=== PATIENT | male | born 1970 | race Caucasian/White ===

== ENCOUNTER 2017-06-28 12:13 | Inpatient (IN) | payer OTHER ==
[~2017-06-28] VITALS: Ht 175.3 cm; Wt 88.3 kg
[~2017-06-28 12:13] MED LIST: ALL100 PO; ASPEC81 PO; CLC100 PO; GEMF600T3 PO; LISI20TA3 PO; ODVTWSS PO; PRAV20TA PO; SENN-61 PO
[2017-06-28] MEDS ORDERED: SODIUM CHLORIDE 0.9% 1000ML 1,000 ML IV SCH (12:42)
--- NOTE | 2017-06-28 12:43 | EMERGENCY ROOM VISIT NOTE ---
History Report prepared by Agustina: Juan Luis Candelaria Under the Supervision of: Dr. Rah Ramirez M.D. First contact with patient: 12:30 Chief Complaint: NEURO SYMPTOMS Stated Complaint: LEG/L ARM WEAKNESS, SLURRED SPEECH SINCE LAST NIGH History of Present Illness The patient is a 46 year old male who presents to the Emergency Room with complaints of constant weakness beginning last night at 1800. The patient notes that he felt both of his legs grow weak last night at 1800. He notes a history of knee problems, which prompted him to ignore the weakness in his legs. The patient states that he felt restless while sleeping last night and developed left arm weakness/tingling today at 0100. The patient reports that he could not open a bottle cap with his left hand this morning. He also notes that his girlfriend felt that his speech was slurred this morning. The patient reports a history of hypertension, hyperlipidemia, and ETOH abuse. The patient states that he has not consumed alcohol for the past 3 years. He denies any fevers, history of stroke, recent trauma or surgeries, rectal bleeding, headache, history of diabetes, recent illness, neck pain, chest pain, shoulder pain, or abdominal pain. 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 Source of History: patient Onset: Yesterday at 1800 Position: arm (left), leg (bilateral) Quality: other (weakness) Timing: constant Associated Symptoms: No fevers, No headache, No neck pain, No chest pain, No abdominal pain, No hematochezia Note: Associated Symptoms: slurred speech. Denies: Recent illness, shoulder pain. Review of Systems As above. All other systems reviewed were negative unless otherwise stated in history. At least 10 were reviewed Past Medical & Surgical Medical Problems: (1) Degenerative joint disease (2) Lower extremity weakness Old medical records were reviewed. Nurse's notes were reviewed and I agree with. Old medical records were reviewed. Nurse's notes were reviewed and I agree with. Family History Patient reports no known family medical history. Social History Smoking Status: Never Smoker Alcohol Use: none Marital Status: in relationship Occupation Status: employed Current/Historical Medications Scheduled Aspirin (Aspirin), 325 MG PO DAILY Gemfibrozil (Lopid), 600 MG PO BID Lisinopril (Prinivil), 20 MG PO QAM Pravastatin (Pravachol ), 20 MG PO QPM Allergies Coded Allergies: No Known Allergies (Unverified , 04/19/10) Physical Exam Vital Signs Date Time Temp Pulse Resp B/P (MAP) Pulse Ox O2 Delivery O2 Flow Rate FiO2 06/28/17 14:31 127/89 06/28/17 14:29 71 24 95 06/28/17 14:01 135/94 06/28/17 13:59 71 23 94 06/28/17 13:46 137/86 06/28/17 13:45 73 14 96 06/28/17 13:16 75 15 149/94 96 Room Air 06/28/17 13:06 97 Room Air 06/28/17 13:04 92 06/28/17 12:38 87 23 155/105 95 Room Air 06/28/17 12:26 91 19 161/101 98 Room Air 06/28/17 12:19 37.0 91 18 171/104 96 Room Air Physical Exam General: Non-ill appearing middle aged male in no acute distress. Speech is slightly thickened but the patient is able to answer all questions normally. Alert and oriented x3. HEENT: Normal cephalic atraumatic. Pupils are equal round and reactive to light. Extraocular movements are intact. Oropharynx is pink with moist mucous membranes. No swelling of the mouth lips or tongue. Neck: Supple with a midline trachea. No meningeal signs or stiffness, no JVD or bruits. No Stridor. Chest: Clear to auscultation bilaterally. No wheezes or rhonchi. No increased work of breathing. Heart: regular rate and rhythm. Abdomen: Soft nontender, nondistended without rebound guarding or rigidity. Extremities: No cyanosis clubbing or edema. No calf tenderness or assymetry Spine/Back. Non tender to palpation. No CVA tenderness Skin: Good turgor without rashes. Neurologic exam: Cranial nerves two through 12 are intact. Left arm and leg have equal strength compared to the right but the patient states that they feel "different". He is intact to light touch. Finger nose intact. The patient is able to read and name objects without difficulty. Medical Decision & Procedures ER Provider Diagnostic Interpretation: Radiology results as stated below per my review and radiologist interpretation: CT SCAN OF THE BRAIN WITHOUT IV CONTRAST CLINICAL HISTORY: Strokelike symptoms. COMPARISON STUDY: No priors. TECHNIQUE: Unenhanced axial CT scan of the brain is performed from the vertex to the skull base. A dose lowering technique was utilized adhering to the principles of ALARA. FINDINGS: Brain parenchyma: The brain parenchyma is normal in appearance. There is no hemorrhage, mass effect, or evidence of acute territorial ischemia by CT criteria. Gunter-white matter is preserved. No extra-axial fluid collection is seen. Ventricles, sulci, cisterns: Normal in configuration. Intracranial vasculature: There is atherosclerotic calcification of the cavernous carotid and vertebral arteries. Calvarium: Unremarkable. Sinuses and mastoids: The visualized paranasal sinuses are clear. The mastoid air cells are well pneumatized. Orbits: The bony orbits are grossly intact. IMPRESSION: There is no hemorrhage, mass effect, or evidence of acute territorial ischemia by CT criteria. Electronically signed by: Nehemias Alegre M.D. 06/28/2017 1:01 PM Dictated Date/Time: 06/28/2017 12:[address] ANGIOGRAM OF THE BRAIN; CT ANGIOGRAM OF THE NECK CLINICAL HISTORY: Strokelike symptoms. COMPARISON STUDY: Unenhanced CT of the brain performed the same day 06/28/2017. TECHNIQUE: Following the IV administration of 119 of Optiray 320, CT angiogram of the head and neck was performed from the aortic arch to the vertex. Images are reviewed in the axial, sagittal, and coronal planes. 3-D MIPS images are created and assessed. IV contrast was administered without complication. All measurements were calculated based on NASCET criteria. A dose lowering technique was utilized adhering to the principles of ALARA. CT DOSE: 1198.79 mGy.cm FINDINGS: Brain parenchyma: The brain parenchyma is normal in appearance. There is no hemorrhage, mass effect, or evidence of acute territorial ischemia by CT criteria. There is no evidence of enhancing mass lesion on the angiogram phase images. The ventricles, sulci, and cisterns are normal in configuration. Gunter-white matter differentiation is preserved. No extra-axial fluid collection is seen. Thoracic aorta: Visualized portions of the thoracic aorta are normal in caliber. The aortic arch demonstrates standard 3-vessel anatomy. Right carotid arterial system: The right common carotid artery is widely patent, as are the right internal and external carotid arteries. Left carotid arterial system: The left common carotid artery is widely patent, as are the left internal and external carotid arteries. Vertebral arteries: Widely patent bilaterally and codominant. Subclavian arteries: Widely patent bilaterally. Intracranial vasculature: There is mild atherosclerotic calcification of the cavernous carotid arteries. The internal carotid arteries are patent at the skull base, as are the anterior and middle cerebral arteries bilaterally. The vertebrobasilar system and posterior cerebral arteries are widely patent. The vertebral arteries are codominant. There is no aneurysm, high-grade stenosis, or focal vessel cut off seen throughout the intracranial circulation. Jugular veins: Widely patent bilaterally. Dural sinuses: Patent. Lung apices: Partially visualized upper lobe lung parenchyma appears clear. Soft tissues: The visualized pharyngeal soft tissues are normal in appearance noting angiographic phase technique. The oropharyngeal airway appears widely patent. The salivary glands are normal in appearance. 11 mm low-attenuation nodule is noted in the left thyroid lobe. No cervical lymphadenopathy is seen. Skeletal structures: The calvarium appears intact. The cervical spine is within normal limits. Sinuses and mastoids: The paranasal sinuses are clear. The mastoid air cells are well pneumatized. IMPRESSION: 1. There is no hemorrhage, mass effect, or evidence of acute territorial ischemia by CT criteria. 2. Unremarkable CT angiogram of the brain. 3. Unremarkable CT angiogram of the neck. 4. There is an 11 mm low-attenuation nodule in the left thyroid lobe. Follow-up with a nonemergent thyroid ultrasound is recommended. Electronically signed by: Nehemias Alegre M.D. 06/28/2017 1:20 PM Dictated Date/Time: 06/28/2017 1:[address] ANGIOGRAM OF THE BRAIN; CT ANGIOGRAM OF THE NECK CLINICAL HISTORY: Strokelike symptoms. COMPARISON STUDY: Unenhanced CT of the brain performed the same day 06/28/2017. TECHNIQUE: Following the IV administration of 119 of Optiray 320, CT angiogram of the head and neck was performed from the aortic arch to the vertex. Images are reviewed in the axial, sagittal, and coronal planes. 3-D MIPS images are created and assessed. IV contrast was administered without complication. All measurements were calculated based on NASCET criteria. A dose lowering technique was utilized adhering to the principles of ALARA. CT DOSE: 1198.79 mGy.cm FINDINGS: Brain parenchyma: The brain parenchyma is normal in appearance. There is no hemorrhage, mass effect, or evidence of acute territorial ischemia by CT criteria. There is no evidence of enhancing mass lesion on the angiogram phase images. The ventricles, sulci, and cisterns are normal in configuration. Gunter-white matter differentiation is preserved. No extra-axial fluid collection is seen. Thoracic aorta: Visualized portions of the thoracic aorta are normal in caliber. The aortic arch demonstrates standard 3-vessel anatomy. Right carotid arterial system: The right common carotid artery is widely patent, as are the right internal and external carotid arteries. Left carotid arterial system: The left common carotid artery is widely patent, as are the left internal and external carotid arteries. Vertebral arteries: Widely patent bilaterally and codominant. Subclavian arteries: Widely patent bilaterally. Intracranial vasculature: There is mild atherosclerotic calcification of the cavernous carotid arteries. The internal carotid arteries are patent at the skull base, as are the anterior and middle cerebral arteries bilaterally. The vertebrobasilar system and posterior cerebral arteries are widely patent. The vertebral arteries are codominant. There is no aneurysm, high-grade stenosis, or focal vessel cut off seen throughout the intracranial circulation. Jugular veins: Widely patent bilaterally. Dural sinuses: Patent. Lung apices: Partially visualized upper lobe lung parenchyma appears clear. Soft tissues: The visualized pharyngeal soft tissues are normal in appearance noting angiographic phase technique. The oropharyngeal airway appears widely patent. The salivary glands are normal in appearance. 11 mm low-attenuation nodule is noted in the left thyroid lobe. No cervical lymphadenopathy is seen. Skeletal structures: The calvarium appears intact. The cervical spine is within normal limits. Sinuses and mastoids: The paranasal sinuses are clear. The mastoid air cells are well pneumatized. IMPRESSION: 1. There is no hemorrhage, mass effect, or evidence of acute territorial ischemia by CT criteria. 2. Unremarkable CT angiogram of the brain. 3. Unremarkable CT angiogram of the neck. 4. There is an 11 mm low-attenuation nodule in the left thyroid lobe. Follow-up with a nonemergent thyroid ultrasound is recommended. Electronically signed by: Nehemias Alegre M.D. 06/28/2017 1:20 PM Dictated Date/Time: 06/28/2017 1:14 PM Laboratory Results 06/28/17 12:35 Red Blood Count 5.33, Mean Corpuscular Volume 88.4, Mean Corpuscular Hemoglobin 31.0, Mean Corpuscular Hemoglobin Concent 35.0, Mean Platelet Volume 11.4, Neutrophils (%) (Auto) 65.1, Lymphocytes (%) (Auto) 23.8, Monocytes (%) (Auto) 9.0, Eosinophils (%) (Auto) 1.6, Basophils (%) (Auto) 0.2, Neutrophils # (Auto) 5.60, Lymphocytes # (Auto) 2.05, Monocytes # (Auto) 0.78, Eosinophils # (Auto) 0.14, Basophils # (Auto) 0.02 06/28/17 12:35 Test 06/28/17 12:35 06/28/17 12:45 06/28/17 13:18 White Blood Count 8.62 K/uL (4.8-10.8) Red Blood Count 5.33 M/uL (4.7-6.1) Hemoglobin 16.5 g/dL (14.0-18.0) Hematocrit 47.1 % (42-52) Mean Corpuscular Volume 88.4 fL (80-100) Mean Corpuscular Hemoglobin 31.0 pg (25-34) Mean Corpuscular Hemoglobin Concent 35.0 g/dl (32-36) Platelet Count 183 K/uL (130-400) Mean Platelet Volume 11.4 fL (7.4-10.4) Neutrophils (%) (Auto) 65.1 % Lymphocytes (%) (Auto) 23.8 % Monocytes (%) (Auto) 9.0 % Eosinophils (%) (Auto) 1.6 % Basophils (%) (Auto) 0.2 % Neutrophils # (Auto) 5.60 K/uL (1.4-6.5) Lymphocytes # (Auto) 2.05 K/uL (1.2-3.4) Monocytes # (Auto) 0.78 K/uL (0.11-0.59) Eosinophils # (Auto) 0.14 K/uL (0-0.5) Basophils # (Auto) 0.02 K/uL (0-0.2) RDW Standard Deviation 40.6 fL (36.4-46.3) RDW Coefficient of Variation 12.6 % (11.5-14.5) Immature Granulocyte % (Auto) 0.3 % Immature Granulocyte # (Auto) 0.03 K/uL (0.00-0.02) Prothrombin Time 10.0 SECONDS (9.0-12.0) Prothromb Time International Ratio 1.0 (0.9-1.1) Activated Partial Thromboplast Time 26.4 SECONDS (21.0-31.0) Partial Thromboplastin Ratio 1.0 Est Creatinine Clear Calc Drug Dose 95.2 ml/min Estimated GFR () 96.8 Estimated GFR (Non- 83.5 BUN/Creatinine Ratio 12.6 (10-20) Calcium Level 8.8 mg/dl (8.5-10.1) Magnesium Level 2.0 mg/dl (1.8-2.4) Total Creatine Kinase 260 U/L (39-308) Creatine Kinase MB 2.8 ng/ml (0.5-3.6) Creatine Kinase MB Ratio 1.1 (0-3.0) Troponin I < 0.015 ng/ml (0-0.045) Bedside Hemoglobin 16.7 g/dl (14.0-18.0) Bedside Hematocrit 49 % (42-52) Bedside Sodium 138 mEq/L (135-144) Bedside Potassium 3.8 mEq/L (3.3-5.0) Bedside Chloride 102 mEq/L (101-112) Bedside Total CO2 22 mEq/l (24-31) Anion Gap 19.0 mmol/L (16-25) Bedside Blood Urea Nitrogen 13 mg/dl (7-18) Bedside Creatinine 0.8 mg/dl (0.6-1.3) Bedside Glucose (other) 252 mg/dl (70-99) Bedside Ionized Calcium (Carisa) 1.19 mmol/l (1.12-1.32) Ethyl Alcohol mg/dL < 3.0 mg/dl (0-3) Laboratory studies as stated above per my review. Medications Administered Medications (Trade) Dose Ordered Sig/[facility] Route Start Time Stop Time Status Last Admin Dose Admin Sodium Chloride 1,000 ml @ 50 mls/hr Q20H IV 06/28/17 12:42 07/28/17 12:41 06/28/17 13:05 50 MLS/HR ECG Per My Interpretation Indication: weakness Rate (beats per minute): 90 Rhythm: normal sinus Findings: no acute ischemic change, other (normal intervals) Comparison ECG Date: April 20 2009 Change: no significant change ED Course 1230: Past medical records reviewed. The patient was evaluated in room C10, and a complete history and physical examination were performed. 1242: Ordered Sodium Chloride 1000 ml @ 50 mls/hr IV 1301: The patient has just returned from CAT scan. He is currently being evaluated from a stroke standpoint. 1327: I reevaluated the patient. He states that he already took his 325 aspirin today. 1331: I discussed the patient's case with Dr. Jonas- Stroke neurologist at [facility]. He states that given the patient's minimal symptoms at this time, he would not perform interventions at this point. 1339: I reevaluated the patient. He is currently stable. I will admit the patient for further monitoring and treatment. 1345: I discussed the patient's case with Dr. Caal - [facility]. He will evaluate the patient for further treatment and care. Medical Decision Differentials include, but are not limited to; CVA, TIA, electrolyte or metabolic abnormality, infection, trauma. This patient comes in as described above. He is placed in room CD10. He is having neurologic symptoms that started last evening. He said around 6 PM both legs felt weak. Then later in the evening he had a hard time sleeping he estimates sometime after midnight may be around 1:00 in the morning it felt like his left arm was not working very well and again this morning. He feels odd in his left arm and leg. His girlfriend also noticed that his speech is off compared to baseline. He has had no fall or trauma. On my exam, he has no weakness but may have some tingling/numbness. His speech is slightly dysarthric. Although his symptoms are relatively mild, I did call a stroke alert as he is likely about 12 hours into this. At this point, he would not meet TPA criteria but I wanted to speed his workup along, it is possible he could meet criteria for other interventions at a tertiary care center. CAT scan of the head was negative as well as CT of the head and neck. He has no acute electrolyte or metabolic abnormalities, blood sugars mildly elevated however he has nothing to suggest DKA. EKG does not suggest acute coronary syndrome or arrhythmia. I did talk to the [place] stroke neurologist who felt that given his very low NIH score and his timing he would definitely not meet TPA and there were no other interventions at [place] that he would suggest at this point. I do think he needs a further workup and may have had a small stroke related to some small vessels. I have consulted Dr. Caal to see the patient ER for these measures. Medication Reconcilliation Current Medication List: was personally reviewed by me Blood Pressure Screening Patient's blood pressure: Elevated blood pressure Blood pressure disposition: Referred to PCP Consults Time Called: 1325 Consulting Physician: Dr. Jonas- Stroke neurologist at [facility] Returned Call: 1331 I discussed the patient's case with Dr. Jonas- Stroke neurologist at [facility]. He states that given the patient's minimal symptoms at this time , he would not perform interventions at this point. Additional Consults: Time Called: 1340 Consulted Physician: Dr. Afua Valencia [facility] Returned Call: 1345 Additional Comments: I discussed the patient's case with Dr. Afua Valencia [facility]. He will evaluate the patient for further treatment and care. Impression Primary Impression: CVA (cerebral vascular accident) Additional Impressions: Dysarthria Left arm weakness Scribe Attestation The scribe's documentation has been prepared under my direction and personally reviewed by me in its entirety. I confirm that the note above accurately reflects all work, treatment, procedures, and medical decision making performed by me. Departure Information Dispostion Being Evaluated By Hospitalist Referrals Brock Nciolas M.D. (PCP) Patient Instructions My [facility] Problem Qualifiers
[2017-06-28 12:51] LABS: BASO % 0.2 %; BASO ABS # 0.02 K/uL (0-0.2); EOS % 1.6 %; EOS ABS # 0.14 K/uL (0-0.5); HEMATOCRIT 47.1 % (42-52); HEMOGLOBIN 16.5 g/dL (14.0-18.0); IG# 0.03 K/uL (0.00-0.02); LYMPH % 23.8 %; LYMPH ABS # 2.05 K/uL (1.2-3.4); MEAN CELL VOLUME 88.4 fL (80-100); MEAN PLATELET VOLUME 11.4 fL (7.4-10.4); MONO ABS # 0.78 K/uL (0.11-0.59); NEUT % 65.1 %; PLATELET COUNT 183 K/uL (130-400); RED CELL DISTRIBUTION WIDTH CV 12.6 % (11.5-14.5); RED CELL DISTRIBUTION WIDTH SD 40.6 fL (36.4-46.3); WHITE BLOOD COUNT 8.62 K/uL (4.8-10.8)
[2017-06-28 12:55] LABS: PTT PATIENT 26.4 SECONDS (21.0-31.0)
[2017-06-28 12:56] LABS: ISTAT CREATININE 0.8 mg/dl (0.6-1.3); ISTAT IONIZED CALCIUM 1.19 mmol/l (1.12-1.32); ISTAT POTASSIUM 3.8 mEq/L (3.3-5.0)
[2017-06-28] MEDS ORDERED: OPTIRAY 320 IV PRN (13:00)
--- NOTE | 2017-06-28 13:03 | DIAGNOSTIC IMAGING REPORT ---
CT SCAN OF THE BRAIN WITHOUT IV CONTRAST CLINICAL HISTORY: Strokelike symptoms. COMPARISON STUDY: No priors. TECHNIQUE: Unenhanced axial CT scan of the brain is performed from the vertex to the skull base. A dose lowering technique was utilized adhering to the principles of ALARA. FINDINGS: Brain parenchyma: The brain parenchyma is normal in appearance. There is no hemorrhage, mass effect, or evidence of acute territorial ischemia by CT criteria. Gunter-white matter is preserved. No extra-axial fluid collection is seen. Ventricles, sulci, cisterns: Normal in configuration. Intracranial vasculature: There is atherosclerotic calcification of the cavernous carotid and vertebral arteries. Calvarium: Unremarkable. Sinuses and mastoids: The visualized paranasal sinuses are clear. The mastoid air cells are well pneumatized. Orbits: The bony orbits are grossly intact. IMPRESSION: There is no hemorrhage, mass effect, or evidence of acute territorial ischemia by CT criteria. Electronically signed by: Nehemias Alegre M.D. 06/28/2017 1:01 PM Dictated Date/Time: 06/28/2017 12:59 PM
[2017-06-28 13:06] LABS: BLOOD UREA NITROGEN 13 mg/dl (7-18); CALCIUM 8.8 mg/dl (8.5-10.1); CARBON DIOXIDE 24 mmol/L (21-32); CREATININE 1.05 mg/dl (0.60-1.40); GLUCOSE 247 mg/dl (70-99); POTASSIUM 3.7 mmol/L (3.5-5.1); SODIUM 135 mmol/L (136-145)
[2017-06-28] MEDS ORDERED: ASPECOTC PO (13:07)
[2017-06-28 13:10] LABS: CKMB 2.8 ng/ml (0.5-3.6)
--- NOTE | 2017-06-28 13:21 | DIAGNOSTIC IMAGING REPORT ---
CT ANGIOGRAM OF THE BRAIN; CT ANGIOGRAM OF THE NECK CLINICAL HISTORY: Strokelike symptoms. COMPARISON STUDY: Unenhanced CT of the brain performed the same day 06/28/2017. TECHNIQUE: Following the IV administration of 119 of Optiray 320, CT angiogram of the head and neck was performed from the aortic arch to the vertex. Images are reviewed in the axial, sagittal, and coronal planes. 3-D MIPS images are created and assessed. IV contrast was administered without complication. All measurements were calculated based on NASCET criteria. A dose lowering technique was utilized adhering to the principles of ALARA. CT DOSE: 1198.79 mGy.cm FINDINGS: Brain parenchyma: The brain parenchyma is normal in appearance. There is no hemorrhage, mass effect, or evidence of acute territorial ischemia by CT criteria. There is no evidence of enhancing mass lesion on the angiogram phase images. The ventricles, sulci, and cisterns are normal in configuration. Gunter-white matter differentiation is preserved. No extra-axial fluid collection is seen. Thoracic aorta: Visualized portions of the thoracic aorta are normal in caliber. The aortic arch demonstrates standard 3-vessel anatomy. Right carotid arterial system: The right common carotid artery is widely patent, as are the right internal and external carotid arteries. Left carotid arterial system: The left common carotid artery is widely patent, as are the left internal and external carotid arteries. Vertebral arteries: Widely patent bilaterally and codominant. Subclavian arteries: Widely patent bilaterally. Intracranial vasculature: There is mild atherosclerotic calcification of the cavernous carotid arteries. The internal carotid arteries are patent at the skull base, as are the anterior and middle cerebral arteries bilaterally. The vertebrobasilar system and posterior cerebral arteries are widely patent. The vertebral arteries are codominant. There is no aneurysm, high-grade stenosis, or focal vessel cut off seen throughout the intracranial circulation. Jugular veins: Widely patent bilaterally. Dural sinuses: Patent. Lung apices: Partially visualized upper lobe lung parenchyma appears clear. Soft tissues: The visualized pharyngeal soft tissues are normal in appearance noting angiographic phase technique. The oropharyngeal airway appears widely patent. The salivary glands are normal in appearance. 11 mm low-attenuation nodule is noted in the left thyroid lobe. No cervical lymphadenopathy is seen. Skeletal structures: The calvarium appears intact. The cervical spine is within normal limits. Sinuses and mastoids: The paranasal sinuses are clear. The mastoid air cells are well pneumatized. IMPRESSION: 1. There is no hemorrhage, mass effect, or evidence of acute territorial ischemia by CT criteria. 2. Unremarkable CT angiogram of the brain. 3. Unremarkable CT angiogram of the neck. 4. There is an 11 mm low-attenuation nodule in the left thyroid lobe. Follow-up with a nonemergent thyroid ultrasound is recommended. Electronically signed by: Nehemias Alegre M.D. 06/28/2017 1:20 PM Dictated Date/Time: 06/28/2017 1:14 PM
[2017-06-28] MEDS ORDERED: ACETAMINOPHEN 325 MG TAB PO PRN (14:30)
[2017-06-28] MEDS ORDERED: GLUCOSE 10 TABS/TUBE PO PRN (14:30)
[2017-06-28] MEDS ORDERED: PHARMACIST DISCHARGE MED REC CONSULT PRN (14:30)
[2017-06-28] MEDS ORDERED: GLUCOSE 40% GEL 15 GM TUBE PO PRN (14:30)
[2017-06-28] MEDS ORDERED: DEXTROSE 50% 50 ML SYR IV PRN (14:30)
[2017-06-28] MEDS ORDERED: ONDANSETRON INJ 2 MG/ML 2 ML VIAL IV PRN (14:30)
[2017-06-28] MEDS ORDERED: GLUCAGON FOR INJ 1 MG VIAL SQ PRN (14:30)
[2017-06-28] MEDS ORDERED: MAGNESIUM HYDROXIDE SUSP 30 ML UDC PO PRN (14:30)
[2017-06-28] MEDS ORDERED: ALUMINUM/MAGNESIUM/SIMETH (MAALOX MAX) 30 ML UDC PO PRN (14:30)
[2017-06-28] MEDS ORDERED: POLYETHYLENE (MIRALAX) 17 GM PACK PO PRN (14:30)
[2017-06-28 15:04] VITALS: O2SAT 95; Ht 175.3 cm; Wt 88.3 kg
--- NOTE | 2017-06-28 15:05 | History and Physical ---
History & Physical Date & Time of Service: Jun 28, 2017 at 14:41 Chief Complaint: Leg/L Arm Weakness, Slurred Speech Since Last Night Primary Care Physician: Brock Nicolas M.D. History of Present Illness Source: patient, clinic records, hospital records This is a 46 y/o male with a history of HTN, HLD, DM II, gout, and fatty liver who presented to the ED on 06/28 with bilateral lower extremity weakness and left arm weakness and tingling. The patient had been in his normal state of health until around 1800 last night when he developed bilateral lower extremity weakness. He states that he was still able to walk and get around, but felt that his legs might give out. He had also reported quick, intermittent episodes of nausea that night but denied any dysphagia. He was restless all night. This morning he developed left arm weakness and tingling as well. He states that he has been having pain and possible weakness due to injury to his left elbow but that now his entire left arm is affected and this feels different than his previous injury. He denies any recent trauma or falls. Per his girlfriend, he may have had some slurred speech this morning and he notes he was drooling from the left side. He denies any slurred speech now or aphasia. The patient denies fevers, chills, sweats, chest pain, palpitations, claudication, cough, wheezing, shortness of breath, vomiting, abdominal pain, dysuria, hematuria, urinary retention, paralysis. Past Medical/Surgical History Medical Problems: (1) Benign essential hypertension (2) Degenerative joint disease (3) Hyperlipidemia (4) Lower extremity weakness DM II Gout Fatty liver Family History Diabetes mellitus GRANDMOTHER Emphysema MOTHER Myocardial infarction at age less than 60 FATHER, Onset:40 Uncle, Onset:38 Social History Smoking Status: Never Smoker Smokeless Tobacco Use: Yes (1 can q3days) Alcohol Use: none (former heavy use, no ETOH since 11/22/14) Drug Use: none Marital Status: in relationship Housing status: lives with family Occupational Status: employed Immunizations History of Influenza Vaccine: Yes History of Tetanus Vaccine?: Yes History of Pneumococcal: Unknown History of Hepatitis B Vaccine: No Allergies Coded Allergies: No Known Allergies (Unverified , 04/19/10) Home Medications Scheduled Aspirin (Aspirin), 325 MG PO DAILY Gemfibrozil (Lopid), 600 MG PO BID Lisinopril (Prinivil), 20 MG PO QAM Pravastatin (Pravachol ), 20 MG PO QPM Review of Systems Constitutional: No fever, No chills, No sweats Eyes: No worsening of vision, No eye pain, No diplopia ENT: No hearing loss, No nasal symptoms, No trouble swallowing Respiratory: No cough, No wheezing, No shortness of breath Cardiovascular: No chest pain, No claudication, No palpitations Abdomen: +Brief periods nausea. No pain, No vomiting Musculoskeletal: No joint pain, No muscle pain, No swelling Genitourinary - Male: No dysuria, No urinary retention, No hematuria Neurologic: +Bilateral lower extremity weakness. Left arm weak and tingling. Possible slurred speech. No paralysis Integumentary: No rash, No itch, No color change Physical Exam Vital Signs Date Time Temp Pulse Resp B/P (MAP) Pulse Ox O2 Delivery O2 Flow Rate FiO2 06/28/17 13:46 137/86 06/28/17 13:45 73 14 96 06/28/17 13:16 75 15 149/94 96 Room Air 06/28/17 13:06 97 Room Air 06/28/17 13:04 92 06/28/17 12:38 87 23 155/105 95 Room Air 06/28/17 12:26 91 19 161/101 98 Room Air 06/28/17 12:19 37.0 91 18 171/104 96 Room Air General appearance: Well-developed, well-nourished, no apparent distress Head: Normocephalic, atraumatic Eyes: Normal inspection, PERRL, EOMI ENT: Normal ENT inspection, hearing grossly normal, pharynx normal Neck: Supple, no JVD, trachea midline Respiratory/Chest: Lungs clear to auscultation, normal breath sounds, no respiratory distress Cardiovascular: Regular rate & rhythm, no gallop, no murmur Abdomen/GI: Normal bowel sounds, non-tender, soft Extremities/Musculoskeletal: Normal inspection, no calf tenderness, no pedal edema Neurological/Psych: +No notable dysarthria or facial droop during my exam. Left arm became shaky while testing pronator drift but did not drift down. Extremity muscle strength equal bilaterally, sensation intact and equal bilaterally on my exam. Cerebellar exams normal. Alert, normal mood/affect, oriented x 3 Skin: Normal color, warm/dry, no rash Diagnostics Laboratory Results Results Past 24 Hours Test 06/28/17 12:35 06/28/17 12:45 06/28/17 13:18 Range/Units White Blood Count 8.62 4.8-10.8 K/uL Red Blood Count 5.33 4.7-6.1 M/uL Hemoglobin 16.5 14.0-18.0 g/dL Hematocrit 47.1 42-52 % Mean Corpuscular Volume 88.4 80-100 fL Mean Corpuscular Hemoglobin 31.0 25-34 pg Mean Corpuscular Hemoglobin Concent 35.0 32-36 g/dl Platelet Count 183 130-400 K/uL Mean Platelet Volume 11.4 7.4-10.4 fL Neutrophils (%) (Auto) 65.1 % Lymphocytes (%) (Auto) 23.8 % Monocytes (%) (Auto) 9.0 % Eosinophils (%) (Auto) 1.6 % Basophils (%) (Auto) 0.2 % Neutrophils # (Auto) 5.60 1.4-6.5 K/uL Lymphocytes # (Auto) 2.05 1.2-3.4 K/uL Monocytes # (Auto) 0.78 0.11-0.59 K/uL Eosinophils # (Auto) 0.14 0-0.5 K/uL Basophils # (Auto) 0.02 0-0.2 K/uL RDW Standard Deviation 40.6 36.4-46.3 fL RDW Coefficient of Variation 12.6 11.5-14.5 % Immature Granulocyte % (Auto) 0.3 % Immature Granulocyte # (Auto) 0.03 0.00-0.02 K/uL Prothrombin Time 10.0 9.0-12.0 SECONDS Prothromb Time International Ratio 1.0 0.9-1.1 Activated Partial Thromboplast Time 26.4 21.0-31.0 SECONDS Partial Thromboplastin Ratio 1.0 Sodium Level 135 136-145 mmol/L Potassium Level 3.7 3.5-5.1 mmol/L Chloride Level 105 98-107 mmol/L Carbon Dioxide Level 24 21-32 mmol/L Anion Gap 6.0 19.0 16-25 mmol/L Blood Urea Nitrogen 13 7-18 mg/dl Creatinine 1.05 0.60-1.40 mg/dl Est Creatinine Clear Calc Drug Dose 95.2 ml/min Estimated GFR () 96.8 Estimated GFR (Non- 83.5 BUN/Creatinine Ratio 12.6 10-20 Random Glucose 247 70-99 mg/dl Calcium Level 8.8 8.5-10.1 mg/dl Magnesium Level 2.0 1.8-2.4 mg/dl Total Creatine Kinase 260 39-308 U/L Creatine Kinase MB 2.8 0.5-3.6 ng/ml Creatine Kinase MB Ratio 1.1 0-3.0 Troponin I < 0.015 0-0.045 ng/ml Bedside Hemoglobin 16.7 14.0-18.0 g/dl Bedside Hematocrit 49 42-52 % Bedside Sodium 138 135-144 mEq/L Bedside Potassium 3.8 3.3-5.0 mEq/L Bedside Chloride 102 101-112 mEq/L Bedside Total CO2 22 24-31 mEq/l Bedside Blood Urea Nitrogen 13 7-18 mg/dl Bedside Creatinine 0.8 0.6-1.3 mg/dl Bedside Glucose (other) 252 70-99 mg/dl Bedside Ionized Calcium (Carisa) 1.19 1.12-1.32 mmol/l Ethyl Alcohol mg/dL < 3.0 0-3 mg/dl Diagnostic Radiology Reviewed the following studies and agree with interpretation as follows: CT SCAN OF THE BRAIN WITHOUT IV CONTRAST CLINICAL HISTORY: Strokelike symptoms. COMPARISON STUDY: No priors. TECHNIQUE: Unenhanced axial CT scan of the brain is performed from the vertex to the skull base. A dose lowering technique was utilized adhering to the principles of ALARA. FINDINGS: Brain parenchyma: The brain parenchyma is normal in appearance. There is no hemorrhage, mass effect, or evidence of acute territorial ischemia by CT criteria. Gunter-white matter is preserved. No extra-axial fluid collection is seen. Ventricles, sulci, cisterns: Normal in configuration. Intracranial vasculature: There is atherosclerotic calcification of the cavernous carotid and vertebral arteries. Calvarium: Unremarkable. Sinuses and mastoids: The visualized paranasal sinuses are clear. The mastoid air cells are well pneumatized. Orbits: The bony orbits are grossly intact. IMPRESSION: There is no hemorrhage, mass effect, or evidence of acute territorial ischemia by CT criteria. CT ANGIOGRAM OF THE BRAIN; CT ANGIOGRAM OF THE NECK CLINICAL HISTORY: Strokelike symptoms. COMPARISON STUDY: Unenhanced CT of the brain performed the same day 06/28/2017. TECHNIQUE: Following the IV administration of 119 of Optiray 320, CT angiogram of the head and neck was performed from the aortic arch to the vertex. Images are reviewed in the axial, sagittal, and coronal planes. 3-D MIPS images are created and assessed. IV contrast was administered without complication. All measurements were calculated based on NASCET criteria. A dose lowering technique was utilized adhering to the principles of ALARA. CT DOSE: 1198.79 mGy.cm FINDINGS: Brain parenchyma: The brain parenchyma is normal in appearance. There is no hemorrhage, mass effect, or evidence of acute territorial ischemia by CT criteria. There is no evidence of enhancing mass lesion on the angiogram phase images. The ventricles, sulci, and cisterns are normal in configuration. Gunter-white matter differentiation is preserved. No extra-axial fluid collection is seen. Thoracic aorta: Visualized portions of the thoracic aorta are normal in caliber. The aortic arch demonstrates standard 3-vessel anatomy. Right carotid arterial system: The right common carotid artery is widely patent, as are the right internal and external carotid arteries. Left carotid arterial system: The left common carotid artery is widely patent, as are the left internal and external carotid arteries. Vertebral arteries: Widely patent bilaterally and codominant. Subclavian arteries: Widely patent bilaterally. Intracranial vasculature: There is mild atherosclerotic calcification of the cavernous carotid arteries. The internal carotid arteries are patent at the skull base, as are the anterior and middle cerebral arteries bilaterally. The vertebrobasilar system and posterior cerebral arteries are widely patent. The vertebral arteries are codominant. There is no aneurysm, high-grade stenosis, or focal vessel cut off seen throughout the intracranial circulation. Jugular veins: Widely patent bilaterally. Dural sinuses: Patent. Lung apices: Partially visualized upper lobe lung parenchyma appears clear. Soft tissues: The visualized pharyngeal soft tissues are normal in appearance noting angiographic phase technique. The oropharyngeal airway appears widely patent. The salivary glands are normal in appearance. 11 mm low-attenuation nodule is noted in the left thyroid lobe. No cervical lymphadenopathy is seen. Skeletal structures: The calvarium appears intact. The cervical spine is within normal limits. Sinuses and mastoids: The paranasal sinuses are clear. The mastoid air cells are well pneumatized. IMPRESSION: 1. There is no hemorrhage, mass effect, or evidence of acute territorial ischemia by CT criteria. 2. Unremarkable CT angiogram of the brain. 3. Unremarkable CT angiogram of the neck. 4. There is an 11 mm low-attenuation nodule in the left thyroid lobe. Follow-up with a nonemergent thyroid ultrasound is recommended. EKG Reviewed EKG and agree with interpretation as follows: 90 bpm, NSR Impression Assessment and Plan 46 y/o male with a history of HTN, HLD, DM II, gout, and fatty liver who presented to the ED on 06/28 with bilateral lower extremity weakness and left arm weakness and tingling. Pt afebrile, VSS on arrival. Head CT negative. Head and neck CTA unremarkable for acute disease, did show nodule in left thyroid lobe. EKG no ischemic changes. Symptoms first bgan around 1800 last night and have not improved or worsened per pt. Possible CVA/TIA -Admit to telemetry for observation -Stroke protocol, neuro checks q4h -Consult neurology, appreciate recs -MRI brain, echocardiogram ordered -Head CT, head and neck CTA unremarkable -Trend cardiac enzymes q8h x 3, first set negative -Lipid fasting panel and HgbA1c -Continue ASA, pravastatin, gemfibrozil. Hold lisinopril for now for permissive HTN -EKG q am and prn chest pain -PT/OT HTN--stable, BP 127/89 -Hold lisinopril for now for permissive HTN HLD -Continue pravastatin 20 mg PO qd and gemfibrozil 600 mg PO BID DM II--last HgbA1c 8.2 in 2015. Pt states that when he stopped drinking ETOH, he began drinking copious amounts soda instead (up to four 2L bottles/day) , leading to hyperglycemia. He now drinks sugar free and has cut down amount. He does not take DM meds at home -Insulin sliding scale -Check BSGs q ac and qhs -Recheck HgbA1c as above Gout--stable, no acute flares -Pt had recently filled prednisone dose pack just in case of flare but has not needed to use yet Fatty liver, h/o heavy ETOH use -ETOH level negative in ED -No drinks since 11/22/14 Thyroid nodule -11 mm nodule on left thyroid lobe noted, nonemergent follow up ultrasound recommended DVT prophylaxis -Enoxaparin 40 mg SC q24h -SALVADOR Kohli Code Status -Level I, FULL RESUSCITATION STATUS Resuscitation Status VTE Prophylaxis Will order VTE Prophylaxis: Yes
--- NOTE | 2017-06-28 15:44 | DIAGNOSTIC IMAGING REPORT ---
BONY ORBITS 3 VIEWS CLINICAL HISTORY: MRI clearance. FINDINGS: 3 views of the bony orbits are obtained. Correlation is made with CT of the brain dated 06/28/2017. There is no radiodense/metallic foreign body seen in the region of the bony orbits. The bony orbits are intact as imaged. The visualized paranasal sinuses and the mastoid air cells appear clear. The imaged calvarium appears intact. IMPRESSION: There is no radiodense/metallic foreign body seen in the region of the bony orbits. Electronically signed by: Nehemias Alegre M.D. 06/28/2017 3:42 PM Dictated Date/Time: 06/28/2017 3:42 PM
[2017-06-28] MEDS ORDERED: INSULIN ASPART 100 UNITS/ML 3 ML PEN SC SCH ×2 (16:00→21:00)
--- NOTE | 2017-06-28 16:16 | DIAGNOSTIC IMAGING REPORT ---
MRI OF THE BRAIN WITHOUT IV CONTRAST CLINICAL HISTORY: Left upper and lower extremity weakness. Slurred speech. COMPARISON STUDY: CT and CT angiogram of the brain dated 06/28/2017. TECHNIQUE: MRI of the brain was performed utilizing various T1 and T2-weighted sequences in the axial, sagittal, and coronal planes. IV contrast was not administered for this examination. FINDINGS: Brain parenchyma: There is a questionable punctate focus of restricted diffusion versus artifact identified within the right aspect of the shabbir seen on image #8. A corresponding focus of FLAIR signal abnormality is seen on image #15. No additional foci of restricted effusion are suggested. There are scattered tiny foci of subcortical and periventricular microangiopathic disease. There is no hemorrhage or mass effect. Gunter-white matter differentiation is preserved. No extra-axial fluid collection is seen. The cerebellar tonsils are normal in configuration. Ventricles, sulci, and cisterns: Normal in configuration. Pituitary and sella: Unremarkable. Intracranial vasculature: Normal flow voids are maintained at the skull base. Orbits: The bony orbits are grossly intact. Orbital contents are normal in appearance. Sinuses and mastoids: Clear. Calvarium: Unremarkable. Cervical cord: Partially visualized cervical spinal cord is normal in morphology and signal intensity. IMPRESSION: 1. Question a punctate focus of restricted diffusion versus artifact within the right aspect of the shabbir. A tiny acute to subacute lacunar infarct is not excluded. 2. No additional foci of restricted diffusion are identified. There is no hemorrhage or mass effect. Electronically signed by: Nehemias Alegre M.D. 06/28/2017 4:15 PM Dictated Date/Time: 06/28/2017 4:09 PM
[2017-06-28] MEDS ORDERED: IV FLUIDS COMPLETED PRN (16:45)
[2017-06-28 17:45] VITALS: BP 118/89; PULSE 72; TEMP 37; O2SAT 96
[2017-06-28] MEDS ORDERED: NURSING VERBAL MED ORDER ONE (18:15)
[2017-06-28] MEDS: SODIUM CHLORIDE 0.9% 1000ML 1,000 ML IV SCH (18:22)
[2017-06-28] MEDS: ENOXAPARIN 40 MG/0.4 ML SYR SC SCH (18:54)
[2017-06-28] MEDS: GEMFIBROZIL 600 MG TAB PO SCH (19:13)
[2017-06-28 19:18] VITALS: BP 127/85; PULSE 62; TEMP 36.6; O2SAT 96
[2017-06-28 20:43] LABS: CKMB 1.9 ng/ml (0.5-3.6)
[2017-06-28] MEDS ORDERED: PRAVASTATIN SOD 20 MG TAB PO SCH (21:00)
[2017-06-28 22:53] VITALS: BP 114/75; PULSE 75; TEMP 36.9; O2SAT 94
[2017-06-28] MEDS: INSULIN ASPART 100 UNITS/ML 3 ML PEN SC SCH (23:49)
[2017-06-29 03:14] VITALS: BP 119/72; PULSE 72; TEMP 36.7; O2SAT 95
[2017-06-29 04:27] LABS: BASO % 0.5 %; BASO ABS # 0.04 K/uL (0-0.2); EOS % 2.3 %; EOS ABS # 0.18 K/uL (0-0.5); HEMOGLOBIN 15.7 g/dL (14.0-18.0); IG# 0.03 K/uL (0.00-0.02); LYMPH % 34.7 %; LYMPH ABS # 2.77 K/uL (1.2-3.4); MEAN CELL VOLUME 89.8 fL (80-100); MEAN CORPUSCULAR HEMOGLOBIN 31.3 pg (25-34); MEAN CORPUSCULAR HGB CONC 34.9 g/dl (32-36); MEAN PLATELET VOLUME 11.6 fL (7.4-10.4); NEUT % 52.1 %; NEUT ABS # 4.17 K/uL (1.4-6.5); PLATELET COUNT 163 K/uL (130-400); RED CELL DISTRIBUTION WIDTH CV 12.7 % (11.5-14.5); RED CELL DISTRIBUTION WIDTH SD 41.7 fL (36.4-46.3); WHITE BLOOD COUNT 7.99 K/uL (4.8-10.8)
[2017-06-29 04:46] LABS: BLOOD UREA NITROGEN 12 mg/dl (7-18); CALCIUM 8.5 mg/dl (8.5-10.1); CARBON DIOXIDE 26 mmol/L (21-32); CHOLESTEROL 176 mg/dl (0-200); CREATININE 0.91 mg/dl (0.60-1.40); GLUCOSE 114 mg/dl (70-99); POTASSIUM 3.8 mmol/L (3.5-5.1); SODIUM 138 mmol/L (136-145)
[2017-06-29 04:51] LABS: CKMB 1.7 ng/ml (0.5-3.6); LDL CHOLESTEROL CALCULATED 104 mg/dl
[2017-06-29] MEDS: INSULIN ASPART 100 UNITS/ML 3 ML PEN SC SCH ×4 (06:00→20:34)
[2017-06-29 07:38] VITALS: BP 116/69; PULSE 65; TEMP 36.8; O2SAT 97
[2017-06-29] MEDS ORDERED: LISINOPRIL 20 MG TAB PO SCH (09:00)
[2017-06-29] MEDS: ASPIRIN 325 MG ECTAB PO SCH (10:17)
[2017-06-29] MEDS: ATORVASTATIN 40 MG TAB PO SCH (10:17)
[2017-06-29] MEDS: GEMFIBROZIL 600 MG TAB PO SCH ×2 (10:17→19:37)
[2017-06-29 11:47] VITALS: BP 138/82; PULSE 80; TEMP 37; O2SAT 97
--- NOTE | 2017-06-29 12:07 | Neurology Consultation ---
Neurology Consultation Date of Consultation: Jun 29, 2017. Attending Physician: Khai Max M.D. Primary Care Physician: Brock Nicolas M.D. Reason for Consultation: Stroke History of Present Illness Source: patient, hospital records The patient is a 46-year-old male with a chief complaint of left-sided weakness. He reports that both of his legs felt weak prior to going to bed 2 nights ago. He woke early in the morning with perception of weakness of the left arm and leg. He reports that his leg feels heavy. He also complains of some associated tingling and slurred speech. The symptoms have persisted.Past medical history notable for hypertension although his blood glucose has been significantly elevated in the probably has type 2 diabetes mellitus as well which is a new problem. A CT of the head was negative for hemorrhage or acute process. I reviewed the images and report. CT angiography of the head and neck are unremarkable. An electrocardiogram reveals normal sinus rhythm, 90 beats per minute. His symptoms were felt to be mild in the emergency department and tPA was not administered. A follow-up brain MRI has been completed. I reviewed the images as well as the radiologist's interpretation of this test. There is a punctate area of restricted diffusion within the anterior right shabbir consistent with an acute infarct. Past Medical/Surgical History Medical Problems: (1) Dysarthria Status: Acute (2) Left arm weakness Status: Acute Family History Family history notable for diabetes and heart disease Social History Smokeless Tobacco Use: Yes (1 can q3days) Alcohol Use: none (former heavy use, no ETOH since 11/22/14) Drug Use: none Marital Status: in relationship Occupation Status: employed Allergies Coded Allergies: No Known Allergies (Unverified , 04/19/10) Current Inpatient Medications Current Inpatient Medications Medications (Trade) Dose Ordered Sig/[place] Route Start Time Stop Time Status Last Admin Dose Admin Ioversol (Optiray 320) 125 ml UD PRN IV 06/28/17 13:00 07/02/17 12:59 Enoxaparin Sodium (Lovenox Inj) 40 mg Q24H SC 06/28/17 18:00 07/28/17 17:59 06/28/17 18:54 40 MG Acetaminophen (Tylenol Tab) 650 mg Q4H PRN PO 06/28/17 14:30 07/28/17 14:29 Al Hydrox/Mg Hydrox/Simethicone (Maalox Max Susp) 15 ml Q4H PRN PO 06/28/17 14:30 07/28/17 14:29 Magnesium Hydroxide (Milk Of Magnesia Susp) 30 ml Q12H PRN PO 06/28/17 14:30 07/28/17 14:29 Ondansetron HCl (Zofran Inj) 4 mg Q6H PRN IV 06/28/17 14:30 07/28/17 14:29 Polyethylene (Miralax Powder Packet) 17 gm DAILY PRN PO 06/28/17 14:30 07/28/17 14:29 Miscellaneous Information (Pharmacist Discharge Med Rec Consult) 1 ea UD PRN N/A 06/28/17 14:30 07/28/17 14:29 Glucose (Glucose 40% Gel) 15-30 GRAMS 15 GRAMS... UD PRN PO 06/28/17 14:30 07/28/17 14:29 Glucose (Glucose Chew Tab) 4-8 Tablets 4 Tabl... UD PRN PO 06/28/17 14:30 07/28/17 14:29 Dextrose (Dextrose 50% 50ML Syringe) 25-50ML OF 50% DW IV FOR... UD PRN IV 06/28/17 14:30 07/28/17 14:29 Glucagon (Glucagon Inj) 1 mg UD PRN SQ 06/28/17 14:30 07/28/17 14:29 Aspirin (Ecotrin Tab) 325 mg DAILY PO 06/29/17 09:00 07/29/17 08:59 06/29/17 10:17 325 MG Gemfibrozil (Lopid Tab) 600 mg BID PO 06/28/17 21:00 07/28/17 20:59 06/29/17 10:17 600 MG Lisinopril (Zestril Tab) 20 mg QAM PO 06/29/17 09:00 07/29/17 08:59 Future Hold Miscellaneous (Iv Fluids Completed) 1 ea PRN PRN N/A 06/28/17 16:45 06/28/18 16:44 Sodium Chloride 1,000 ml @ 50 mls/hr Q20H IV 06/28/17 18:15 07/28/17 18:14 06/28/17 18:22 50 MLS/HR Insulin Aspart (novoLOG ASPART) SLIDING SCALE G... Q6 SC 06/29/17 00:00 07/29/17 00:00 Atorvastatin Calcium (Lipitor Tab) 40 mg QAM PO 06/29/17 09:00 07/29/17 08:59 06/29/17 10:17 40 MG Review of Systems Constitutional: No fever chills Eyes: No vision loss or diplopia ENT: No vertigo or hearing loss Cardiovascular: No chest pain or palpitations Respiratory: No cough or shortness of breath Neurological: As per history of present illness Musculoskeletal: No myalgia Hematologic: No abnormal bruising or bleeding A full 10 point review of systems was obtained from this patient with pertinent positives and negatives described in the history of present illness and otherwise listed above. All remaining systems were reviewed and are negative. Physical Exam Vital Signs (Past 24 Hrs): Date Time Temp Pulse Resp B/P (MAP) Pulse Ox O2 Delivery O2 Flow Rate FiO2 06/29/17 11:47 37.0 80 20 138/82 (100) 97 Room Air 06/29/17 07:38 36.8 65 18 116/69 (85) 97 Room Air 06/29/17 04:00 Room Air 06/29/17 03:14 36.7 72 18 119/72 (88) 95 Room Air 06/28/17 23:59 Room Air 06/28/17 22:53 36.9 75 18 114/75 (88) 94 Room Air 06/28/17 20:00 Room Air 06/28/17 19:18 36.6 62 18 127/85 (99) 96 Nasal Cannula 06/28/17 17:45 37.0 72 18 118/89 (99) 96 Room Air 06/28/17 17:29 74 14 119/83 97 06/28/17 16:44 70 16 121/77 95 Room Air 06/28/17 15:04 95 Room Air 06/28/17 15:00 69 18 117/87 96 Room Air 06/28/17 14:31 127/89 06/28/17 14:29 71 24 95 06/28/17 14:01 135/94 06/28/17 13:59 71 23 94 06/28/17 13:46 137/86 06/28/17 13:45 73 14 96 06/28/17 13:16 75 15 149/94 96 Room Air 06/28/17 13:06 97 Room Air 06/28/17 13:04 92 06/28/17 12:38 87 23 155/105 95 Room Air 06/28/17 12:26 91 19 161/101 98 Room Air 06/28/17 12:19 37.0 91 18 171/104 96 Room Air The patient is a well-developed adult male. He is lying comfortably in bed. He is alert and fully oriented. Recent remote memory intact. Attention and concentration normal. Speech is slightly dysarthric. Object naming and repetition are intact. He exhibits an age-appropriate fund of knowledge a normal vocabulary. Visual arroyo full to confrontation. Visual acuity normal. Pupils equal round react to light and accommodation. Eye movements normal. There is no nystagmus. Facial sensation intact bilaterally. There is normal facial symmetry and strength. No facial droop. Hearing intact to finger rub bilaterally. Palate elevates to midline. Shoulder shrug strength intact. Tongue protrudes to midline. The patient reports a mild, relative deficit to light touch and vibration for the left arm and leg. Other sensory modalities are otherwise intact for the limbs. Deep tendon reflexes are intact and symmetrical although the left plantar response is equivocal. Right plantar response downgoing. There is no dysdiadochokinesia although there is slight dysmetria of [id number] and tgtn-[id number] on the left. Finger-nose and heel- to-garcia for the right are normal. Ophthalmoscopic examination reveals normal- appearing optic discs and posterior segments. No papilledema or hemorrhages. Carotid pulses normal bilaterally, no bruits to auscultation. Gait and station not tested due to safety concerns. Muscle strength for the arms and legs is grossly normal bilaterally. Muscle tone normal throughout. No atrophy. No abnormal movements. Laboratory Results Past 24 Hours: 06/29/17 04:10 Red Blood Count 5.01, Mean Corpuscular Volume 89.8, Mean Corpuscular Hemoglobin 31.3, Mean Corpuscular Hemoglobin Concent 34.9, Mean Platelet Volume 11.6, Neutrophils (%) (Auto) 52.1, Lymphocytes (%) (Auto) 34.7, Monocytes (%) (Auto) 10.0, Eosinophils (%) (Auto) 2.3, Basophils (%) (Auto) 0.5, Neutrophils # (Auto ) 4.17, Lymphocytes # (Auto) 2.77, Monocytes # (Auto) 0.80, Eosinophils # (Auto ) 0.18, Basophils # (Auto) 0.04 06/29/17 04:10 Test 06/28/17 12:35 06/28/17 12:45 06/28/17 13:18 06/29/17 04:10 Prothrombin Time 10.0 SECONDS (9.0-12.0) Prothromb Time International Ratio 1.0 (0.9-1.1) Activated Partial Thromboplast Time 26.4 SECONDS (21.0-31.0) Partial Thromboplastin Ratio 1.0 Magnesium Level 2.0 mg/dl (1.8-2.4) Bedside Hemoglobin 16.7 g/dl (14.0-18.0) Bedside Hematocrit 49 % (42-52) Bedside Sodium 138 mEq/L (135-144) Bedside Potassium 3.8 mEq/L (3.3-5.0) Bedside Chloride 102 mEq/L (101-112) Bedside Total CO2 22 mEq/l (24-31) Bedside Blood Urea Nitrogen 13 mg/dl (7-18) Bedside Creatinine 0.8 mg/dl (0.6-1.3) Bedside Glucose (other) 252 mg/dl (70-99) Bedside Ionized Calcium (Carisa) 1.19 mmol/l (1.12-1.32) Ethyl Alcohol mg/dL < 3.0 mg/dl (0-3) White Blood Count 7.99 K/uL (4.8-10.8) Red Blood Count 5.01 M/uL (4.7-6.1) Hemoglobin 15.7 g/dL (14.0-18.0) Hematocrit 45.0 % (42-52) Mean Corpuscular Volume 89.8 fL (80-100) Mean Corpuscular Hemoglobin 31.3 pg (25-34) Mean Corpuscular Hemoglobin Concent 34.9 g/dl (32-36) Platelet Count 163 K/uL (130-400) Mean Platelet Volume 11.6 fL (7.4-10.4) Neutrophils (%) (Auto) 52.1 % Lymphocytes (%) (Auto) 34.7 % Monocytes (%) (Auto) 10.0 % Eosinophils (%) (Auto) 2.3 % Basophils (%) (Auto) 0.5 % Neutrophils # (Auto) 4.17 K/uL (1.4-6.5) Lymphocytes # (Auto) 2.77 K/uL (1.2-3.4) Monocytes # (Auto) 0.80 K/uL (0.11-0.59) Eosinophils # (Auto) 0.18 K/uL (0-0.5) Basophils # (Auto) 0.04 K/uL (0-0.2) RDW Standard Deviation 41.7 fL (36.4-46.3) RDW Coefficient of Variation 12.7 % (11.5-14.5) Immature Granulocyte % (Auto) 0.4 % Immature Granulocyte # (Auto) 0.03 K/uL (0.00-0.02) Anion Gap 5.0 mmol/L (3-11) Est Creatinine Clear Calc Drug Dose 109.8 ml/min Estimated GFR () 115.1 Estimated GFR (Non- 99.3 BUN/Creatinine Ratio 13.5 (10-20) Calcium Level 8.5 mg/dl (8.5-10.1) Total Creatine Kinase 171 U/L (39-308) Creatine Kinase MB 1.7 ng/ml (0.5-3.6) Creatine Kinase MB Ratio 1.0 (0-3.0) Troponin I < 0.015 ng/ml (0-0.045) Triglycerides Level 226 mg/dl (0-150) Cholesterol Level 176 mg/dl (0-200) HDL Cholesterol 27 mg/dl LDL Cholesterol, Calculated 104 mg/dl VLDL Cholesterol, Calculated 45 mg/dl Cholesterol/HDL Ratio 6.5 Test 06/29/17 11:08 Bedside Glucose 228 mg/dl (70-99) Impression Acute punctate ischemic infarct within the right anterior shabbir producing a mild left hemiparesis, primarily dysmetria at this time with very mild associated dysarthria.Hypertension and type 2 diabetes mellitus are notable risk factors for this patient. Diabetes seems to be new diagnosis for him. Plan Antiplatelet therapy is recommended for this patient. As he has reportedly been taking daily aspirin it would be reasonable to switch him to Plavix 75 milligrams per day. He will need to follow up with his primary care physician for ongoing management of his hypertension and type 2 diabetes mellitus. PT/OT/speech therapy Case discussed with Dr. Max
[2017-06-29] MEDS: SODIUM CHLORIDE 0.9% 1000ML 1,000 ML IV SCH (14:15)
--- NOTE | 2017-06-29 14:24 | Progress Note ---
Subjective Date of Service: Jun 29, 2017. Subjective this pt is still feeling weak ,no bothered as much by his sensation of paresthesias Problem List Medical Problems: (1) Dysarthria Status: Acute (2) Left arm weakness Status: Acute Review of Systems Constitutional: + weakness, + fatigue, No fever, No chills Respiratory: No cough, No shortness of breath Cardiac: No chest pain, No edema Abdomen: No pain, No nausea, No vomiting, No diarrhea Male : No dysuria, No urinary frequency Neurologic: + weakness, + numbness/tingling, No memory loss, No paralysis Psychiatric: No depression symptoms, No anhedonism Objective Vital Signs Date Time Temp Pulse Resp B/P (MAP) Pulse Ox O2 Delivery O2 Flow Rate FiO2 06/29/17 11:47 37.0 80 20 138/82 (100) 97 Room Air 06/29/17 07:38 36.8 65 18 116/69 (85) 97 Room Air 06/29/17 04:00 Room Air 06/29/17 03:14 36.7 72 18 119/72 (88) 95 Room Air 06/28/17 23:59 Room Air 06/28/17 22:53 36.9 75 18 114/75 (88) 94 Room Air 06/28/17 20:00 Room Air 06/28/17 19:18 36.6 62 18 127/85 (99) 96 Nasal Cannula 06/28/17 17:45 37.0 72 18 118/89 (99) 96 Room Air 06/28/17 17:29 74 14 119/83 97 06/28/17 16:44 70 16 121/77 95 Room Air 06/28/17 15:04 95 Room Air 06/28/17 15:00 69 18 117/87 96 Room Air 06/28/17 14:31 127/89 06/28/17 14:29 71 24 95 Physical Exam General Appearance: WD/WN, + mild distress Eyes: normal inspection, sclerae normal Neck: supple, thyroid normal Respiratory/Chest: chest non-tender, lungs clear, normal breath sounds Cardiovascular: regular rate, rhythm, no murmur Abdomen: normal bowel sounds, non tender, soft Extremities: no pedal edema, no calf tenderness Neurologic/Psychiatric: alert, oriented x 3 Laboratory Results Last 24 Hours Test 06/28/17 18:07 06/28/17 20:14 06/28/17 23:31 06/29/17 00:05 Bedside Glucose 118 mg/dl 99 mg/dl 96 mg/dl Total Creatine Kinase 198 U/L Creatine Kinase MB 1.9 ng/ml Creatine Kinase MB Ratio 1.0 Troponin I < 0.015 ng/ml Test 06/29/17 04:10 06/29/17 06:04 06/29/17 11:08 White Blood Count 7.99 K/uL Red Blood Count 5.01 M/uL Hemoglobin 15.7 g/dL Hematocrit 45.0 % Mean Corpuscular Volume 89.8 fL Mean Corpuscular Hemoglobin 31.3 pg Mean Corpuscular Hemoglobin Concent 34.9 g/dl Platelet Count 163 K/uL Mean Platelet Volume 11.6 fL Neutrophils (%) (Auto) 52.1 % Lymphocytes (%) (Auto) 34.7 % Monocytes (%) (Auto) 10.0 % Eosinophils (%) (Auto) 2.3 % Basophils (%) (Auto) 0.5 % Neutrophils # (Auto) 4.17 K/uL Lymphocytes # (Auto) 2.77 K/uL Monocytes # (Auto) 0.80 K/uL Eosinophils # (Auto) 0.18 K/uL Basophils # (Auto) 0.04 K/uL RDW Standard Deviation 41.7 fL RDW Coefficient of Variation 12.7 % Immature Granulocyte % (Auto) 0.4 % Immature Granulocyte # (Auto) 0.03 K/uL Sodium Level 138 mmol/L Potassium Level 3.8 mmol/L Chloride Level 107 mmol/L Carbon Dioxide Level 26 mmol/L Anion Gap 5.0 mmol/L Blood Urea Nitrogen 12 mg/dl Creatinine 0.91 mg/dl Est Creatinine Clear Calc Drug Dose 109.8 ml/min Estimated GFR () 115.1 Estimated GFR (Non- 99.3 BUN/Creatinine Ratio 13.5 Random Glucose 114 mg/dl Calcium Level 8.5 mg/dl Total Creatine Kinase 171 U/L Creatine Kinase MB 1.7 ng/ml Creatine Kinase MB Ratio 1.0 Troponin I < 0.015 ng/ml Triglycerides Level 226 mg/dl Cholesterol Level 176 mg/dl HDL Cholesterol 27 mg/dl LDL Cholesterol, Calculated 104 mg/dl VLDL Cholesterol, Calculated 45 mg/dl Cholesterol/HDL Ratio 6.5 Bedside Glucose 122 mg/dl 228 mg/dl Assessment and Plan 46 M found to have a small cva on mri, Head CT negative. Head and neck CTA unremarkable for acute disease, did show nodule in left thyroid lobe, history of HTN, HLD, DM II, gout, and fatty liver. CVA/TIA, small findings on MRI has had recent issues with elevated blood glucoses, ASA, pravastatin changed to atorvostatin, continue gemfibrozil. Holding lisinopril for permissive HTN Neurology is following, -PT/OT HTN--stable, BP 127/89-Hold lisinopril HLD Atorvostatin 40 mg and gemfibrozil 600 mg PO BID DM II--last HgbA1c 8.2 in 2015. Pt states that when he stopped drinking ETOH, pending current HgbA1c this stay He does not take DM meds at home -Insulin sliding scale-Check BSGs q ac and qhs Diabetic education Gout--stable, no acute flares Fatty liver, h/o heavy ETOH use-ETOH level negative in ED-No drinks since Thyroid nodule-11 mm nodule on left thyroid lobe noted, nonemergent follow up ultrasound DVT prophylaxis-Enoxaparin 40 mg SC q24h -SALVADOR power and Jan Code Status-Level I, FULL RESUSCITATION STATUS
[2017-06-29] MEDS ORDERED: PHARMACIST DISCHARGE MED REC CONSULT PRN (14:30)
--- NOTE | 2017-06-29 15:21 | ECHOCARDIOGRAM REPORT ---
*NOTICE TO RECEIVING LIBERTARIAN AGENCY This information is strictly Confidential and protected under [place] law. [place] law prohibits you from making any further disclosure of this information unless further disclosure is expressly permitted by the written consent of the person to whom it pertains or is authorized by law. A general authorization for the release of medical or other information is not sufficient for this purpose. Hospital accepts no responsibility if the information is made available to any other person, INCLUDING THE PATIENT. Interpretation Summary * Name: ALEXUS ROMERO Study Date: 06/29/2017 08:07 AM BP: 119/72 mmHg * Patient Location: C.2E\S\E206\S\1 HR: 63 * : 1970 (M/d/yyyy) Gender: Male Height: 69 in * Age: 46 yrs Ethnicity: CA Weight: 197 lb * Ordering Physician: Hermelinda Mesa * Referring Physician: Self, Referred * Performed By: Jacob Barfield RDCS * * Reason For Study: Cerebral ischemia/embolus * BSA: 2.1 m2 * -- Conclusions -- * 1. Normal left ventricular size with low-normal systolic function. Estimated EF 50-55%. No regional wall motion abnormalities. No left ventricular hypertrophy. Type 1 diastolic dysfunction. * 2. No visualized ASD or PFO. There was no visualized right to left inter atrial shunt following agitated saline. * 3. No significant valvular abnormalities visualized. Procedure Details * A complete two-dimensional transthoracic echocardiogram was performed (2D, M-mode, Doppler and color flow Doppler). * The study was technically adequate. * A saline contrast injection was performed to assess for cardiac shunting. * The injection was performed through an intravenous line in the right arm. * The attending nurse who injected the saline contrast was IKE Paetl. * A total of 10 cc of agitated saline was given. Left Ventricle * Normal left ventricular size with low-normal systolic function. Estimated EF 50-55%. No regional wall motion abnormalities. No left ventricular hypertrophy. Type 1 diastolic dysfunction. Right Ventricle * The right ventricle is normal size. * The right ventricular systolic function is normal as assessed by tricuspid annular plane systolic excursion (TAPSE) (normal >1.5 cm). Atria * The left atrial size is normal. * Right atrial size is normal. * No visualized ASD or PFO. There was no visualized right to left inter atrial shunt following agitated saline. Mitral Valve * The mitral valve is grossly normal. * There is no mitral valve stenosis. * There is trace mitral regurgitation. Tricuspid Valve * The tricuspid valve is not well visualized, but is grossly normal. * There is no tricuspid stenosis. * Significant tricuspid regurgitation is absent. Aortic Valve * The aortic valve is trileaflet. * No hemodynamically significant valvular aortic stenosis. * No aortic regurgitation is present. Pulmonic Valve * The pulmonary valve is inadequately visualized, but the Doppler data is adequate for interpretation. * There is no pulmonic valvular stenosis. * Trace pulmonic valvular regurgitation. Great Vessels * The aortic root is normal size. * Ascending aorta of normal dimension * Normal pulmonary venous flow pattern. Pericardium/Pleural * There is no pericardial effusion. Great Vessels * Normal inferior vena cava size and collapsability with sniff indicates a normal right atrial pressure of 3 mmHg MMode 2D Measurements and Calculations IVSd 1.1 cm IVSs 1.7 cm LVIDd 4.7 cm LVIDs 3.1 cm LVPWd 1.1 cm LVPWs 1.8 cm IVS/LVPW 1.0 FS 34.9 % EDV(Teich) 104.8 ml ESV(Teich) 37.7 ml EF(Teich) 64.1 % EDV(cubed) 107.0 ml ESV(cubed) 29.5 ml EF(cubed) 72.4 % % IVS thick 46.9 % % LVPW thick 56.1 % LV mass(C)d 200.6 grams LV mass(C)dI 97.7 grams/m\S\2 LV mass(C)s 209.6 grams LV mass(C)sI 102.1 grams/m\S\2 SV(Teich) 67.2 ml SI(Teich) 32.7 ml/m\S\2 SV(cubed) 77.5 ml SI(cubed) 37.8 ml/m\S\2 Ao root diam 3.6 cm Ao root area 10.0 cm\S\2 ACS 1.9 cm LA dimension 4.1 cm asc Aorta Diam 3.3 cm LA/Ao 1.2 LVOT diam 2.3 cm LVOT area 4.2 cm\S\2 LVAd ap4 30.2 cm\S\2 LVLd ap4 8.3 cm EDV(MOD-sp4) 96.8 ml EDV(sp4-el) 93.3 ml LVAs ap4 19.4 cm\S\2 LVLs ap4 6.9 cm ESV(MOD-sp4) 48.5 ml ESV(sp4-el) 46.4 ml EF(MOD-sp4) 49.9 % EF(sp4-el) 50.3 % LVAd ap2 31.7 cm\S\2 LVLd ap2 8.7 cm EDV(MOD-sp2) 99.4 ml EDV(sp2-el) 98.1 ml LVAs ap2 19.0 cm\S\2 LVLs ap2 7.4 cm ESV(MOD-sp2) 43.5 ml ESV(sp2-el) 41.5 ml EF(MOD-sp2) 56.3 % EF(sp2-el) 57.6 % LVLd %diff 7.7 % EDV(MOD-bp) 109.4 ml LVLs %diff 7.4 % ESV(MOD-bp) 47.0 ml EF(MOD-bp) 57.0 % SV(MOD-sp4) 48.3 ml SI(MOD-sp4) 23.5 ml/m\S\2 SV(MOD-sp2) 55.9 ml SI(MOD-sp2) 27.3 ml/m\S\2 SV(MOD-bp) 62.4 ml SI(MOD-bp) 30.4 ml/m\S\2 SV(sp4-el) 46.9 ml SI(sp4-el) 22.9 ml/m\S\2 SV(sp2-el) 56.5 ml SI(sp2-el) 27.5 ml/m\S\2 Doppler Measurements and Calculations MV E max tricia 46.1 cm/sec MV A max tricia 49.4 cm/sec MV E/A 0.93 MV dec time 0.19 sec Ao V2 max 110.2 cm/sec Ao max PG 4.9 mmHg Ao max PG (full) 2.6 mmHg HITESH(V,A) 2.9 cm\S\2 HITESH(V,D) 2.9 cm\S\2 LV V1 max PG 2.3 mmHg LV V1 max 75.1 cm/sec RAP systole 3.0 mmHg
[2017-06-29 15:39] VITALS: BP 123/73; PULSE 73; TEMP 36.7; O2SAT 95
[2017-06-29] MEDS: ENOXAPARIN 40 MG/0.4 ML SYR SC SCH (19:04)
[2017-06-29 19:16] VITALS: BP 119/77; PULSE 71; TEMP 36.7; O2SAT 96
[2017-06-29 23:30] VITALS: BP 113/74; PULSE 76; TEMP 36.7; O2SAT 96
[2017-06-30] VITALS (7 sets, daily range): BP systolic 111–149; BP diastolic 71–90; PULSE 64–91; TEMP 36.6–37.1; O2SAT 94–98
[2017-06-30 05:51] LABS: BASO % 0.4 %; BASO ABS # 0.03 K/uL (0-0.2); EOS % 2.8 %; EOS ABS # 0.19 K/uL (0-0.5); HEMATOCRIT 42.6 % (42-52); HEMOGLOBIN 14.8 g/dL (14.0-18.0); IG# 0.01 K/uL (0.00-0.02); LYMPH % 33.2 %; LYMPH ABS # 2.26 K/uL (1.2-3.4); MEAN CELL VOLUME 88.8 fL (80-100); MEAN CORPUSCULAR HEMOGLOBIN 30.8 pg (25-34); MEAN CORPUSCULAR HGB CONC 34.7 g/dl (32-36); MEAN PLATELET VOLUME 11.3 fL (7.4-10.4); MONO % 10.7 %; MONO ABS # 0.73 K/uL (0.11-0.59); NEUT % 52.8 %; NEUT ABS # 3.59 K/uL (1.4-6.5); PLATELET COUNT 150 K/uL (130-400); RED CELL DISTRIBUTION WIDTH CV 12.5 % (11.5-14.5); WHITE BLOOD COUNT 6.81 K/uL (4.8-10.8)
[2017-06-30 06:29] LABS: CALCIUM 8.4 mg/dl (8.5-10.1); CREATININE 0.86 mg/dl (0.60-1.40); POTASSIUM 3.8 mmol/L (3.5-5.1)
[2017-06-30] MEDS: GEMFIBROZIL 600 MG TAB PO SCH ×2 (08:25→19:56)
[2017-06-30] MEDS: ASPIRIN 325 MG ECTAB PO SCH (08:25)
[2017-06-30] MEDS: ATORVASTATIN 40 MG TAB PO SCH (08:26)
[2017-06-30] MEDS: INSULIN ASPART 100 UNITS/ML 3 ML PEN SC SCH ×4 (08:28→21:22)
[2017-06-30 08:38] LABS: HEMOGLOBIN A1C 7.2 % (4.5-5.6)
[2017-06-30] MEDS: SODIUM CHLORIDE 0.9% 1000ML 1,000 ML IV SCH (10:15)
--- NOTE | 2017-06-30 11:02 | DIAGNOSTIC IMAGING REPORT ---
CT SCAN OF THE BRAIN WITHOUT IV CONTRAST CLINICAL HISTORY: Left-sided weakness. Numbness. COMPARISON STUDY: CT and MRI of the brain dated 06/28/2017. TECHNIQUE: Unenhanced axial CT scan of the brain is performed from the vertex to the skull base. A dose lowering technique was utilized adhering to the principles of ALARA. CT DOSE: 638.56 mGycm FINDINGS: Brain parenchyma: The brain parenchyma is normal in appearance. There is no hemorrhage, mass effect, or evidence of acute territorial ischemia by CT criteria. Gunter-white matter is preserved. No extra-axial fluid collection is seen. Ventricles, sulci, cisterns: Normal in configuration. Intracranial vasculature: There is atherosclerotic calcification of the cavernous carotid and vertebral arteries. Calvarium: Unremarkable. Sinuses and mastoids: The visualized paranasal sinuses are clear. The mastoid air cells are well pneumatized. Orbits: The bony orbits are grossly intact. IMPRESSION: There is no hemorrhage, mass effect, or evidence of acute territorial ischemia by CT criteria. Electronically signed by: Nehemias Alegre M.D. 06/30/2017 11:01 AM Dictated Date/Time: 06/30/2017 10:57 AM
--- NOTE | 2017-06-30 16:17 | Hospitalist Progress Note ---
Hospitalist Progress Note Date of Service Jun 30, 2017. (Sujatha Almeida, APRIL) Subjective Pt evaluation today including: conversation w/ patient, physical exam, chart review, lab review, review of inpatient medication list Voiding: no voiding problems Call from nursing to Dr. Rico this morning to report that patient was experiencing increase in left face numbness after arguing over text message with his son. When I came bedside about an hour later, patient was continuing to experience left face tingling, left facial droop, left arm numbness/weakness and head pressure. ROS Constitutional: no chills, aches, sweats or fever Respiratory: no sob,cough, sputum, or wheezing Cardiac: no chest pain, palpitations, edema, orthopnea or lightheadedness GI: no abdominal pain, nausea, vomiting, diarrhea or constipation : no dysuria or hesitancy Extremities: see HPI Skin: no rash All other systems reviewed and negative (Sujatha Almeida, APRIL) Medications Medications Administered Medications (Trade) Dose Ordered Sig/[place] Route Start Time Stop Time Status Last Admin Dose Admin Sodium Chloride 1,000 ml @ 50 mls/hr Q20H IV 06/28/17 12:42 06/28/17 17:51 DC 06/28/17 13:05 50 MLS/HR Enoxaparin Sodium (Lovenox Inj) 40 mg Q24H SC 06/28/17 18:00 07/28/17 17:59 06/29/17 19:04 40 MG Aspirin (Ecotrin Tab) 325 mg DAILY PO 06/29/17 09:00 06/30/17 09:14 DC 06/30/17 08:25 325 MG Gemfibrozil (Lopid Tab) 600 mg BID PO 06/28/17 21:00 07/28/17 20:59 06/30/17 08:25 600 MG Sodium Chloride 1,000 ml @ 50 mls/hr Q20H IV 06/28/17 18:15 07/28/17 18:14 06/30/17 10:15 50 MLS/HR Insulin Aspart (novoLOG ASPART) SLIDING SCALE G... Q6 SC 06/29/17 00:00 06/29/17 19:45 DC 06/29/17 17:04 3 UNITS Atorvastatin Calcium (Lipitor Tab) 40 mg QAM PO 4/22/18 09:00 07/29/17 08:59 06/30/17 08:26 40 MG Insulin Aspart (novoLOG ASPART) SLIDING SCALE G... ACHS SC 06/29/17 21:00 07/29/17 20:59 06/30/17 13:05 5 UNITS (Sujatha Almeida CRNP) Objective Vital Signs Date Time Temp Pulse Resp B/P (MAP) Pulse Ox O2 Delivery O2 Flow Rate FiO2 06/30/17 15:18 37.0 68 18 128/83 (98) 95 Room Air 06/30/17 12:13 36.6 78 19 148/85 (106) 98 Room Air 06/30/17 08:22 91 18 149/90 (109) 97 06/30/17 08:00 Room Air 06/30/17 07:22 36.7 68 19 123/77 (92) 96 Room Air 06/30/17 04:00 Room Air 06/30/17 03:38 36.7 64 17 111/71 (84) 95 Room Air 06/29/17 23:59 Room Air 06/29/17 23:30 36.7 76 18 113/74 (87) 96 Room Air 06/29/17 20:00 Room Air 06/29/17 19:16 36.7 71 18 119/77 (91) 96 Room Air 06/29/17 16:48 Room Air (Sujatha Almeida CRNP) Physical Exam Notes: General: no distress Eyes: normal inspection, PERLL Respiratory: chest non tender, clear to auscultation, normal breath sounds, no respiratory distress, no accessory muscle use Cardiac: regular rate and rhythm, no rub or gallop, no murmur, no edema, no jvd GI/: active bowel sounds, no abd pain or tenderness, soft, non distended Extremities: left facial droop, left arm mild pronator drift, left leg mild drift, all other motor mechanic intact Neuro/Psych: alert and oriented x 3, normal mood and affect Skin: normal color, dry (Sujatha Almeida CRNP) Laboratory Results Last 24 Hours Test 06/29/17 16:36 06/29/17 20:07 06/30/17 05:33 06/30/17 06:30 Bedside Glucose 128 mg/dl 129 mg/dl 119 mg/dl White Blood Count 6.81 K/uL Red Blood Count 4.80 M/uL Hemoglobin 14.8 g/dL Hematocrit 42.6 % Mean Corpuscular Volume 88.8 fL Mean Corpuscular Hemoglobin 30.8 pg Mean Corpuscular Hemoglobin Concent 34.7 g/dl Platelet Count 150 K/uL Mean Platelet Volume 11.3 fL Neutrophils (%) (Auto) 52.8 % Lymphocytes (%) (Auto) 33.2 % Monocytes (%) (Auto) 10.7 % Eosinophils (%) (Auto) 2.8 % Basophils (%) (Auto) 0.4 % Neutrophils # (Auto) 3.59 K/uL Lymphocytes # (Auto) 2.26 K/uL Monocytes # (Auto) 0.73 K/uL Eosinophils # (Auto) 0.19 K/uL Basophils # (Auto) 0.03 K/uL RDW Standard Deviation 40.0 fL RDW Coefficient of Variation 12.5 % Immature Granulocyte % (Auto) 0.1 % Immature Granulocyte # (Auto) 0.01 K/uL Sodium Level 138 mmol/L Potassium Level 3.8 mmol/L Chloride Level 107 mmol/L Carbon Dioxide Level 24 mmol/L Anion Gap 7.0 mmol/L Blood Urea Nitrogen 14 mg/dl Creatinine 0.86 mg/dl Est Creatinine Clear Calc Drug Dose 115.4 ml/min Estimated GFR () 118.8 Estimated GFR (Non- 102.5 BUN/Creatinine Ratio 15.8 Random Glucose 123 mg/dl Calcium Level 8.4 mg/dl Test 06/30/17 11:18 Bedside Glucose 141 mg/dl (Sujatha Almeida, APRIL) Assessment and Plan 46 y/o male with a history of HTN, HLD, DM II, gout, and fatty liver who presented to the ED on 06/28 with bilateral lower extremity weakness and left arm weakness and tingling. Pt afebrile, VSS on arrival. Head CT negative. Head and neck CTA unremarkable for acute disease, did show nodule in left thyroid lobe. EKG no ischemic changes. Symptoms first bgan around 1800 last night and have not improved or worsened per pt. Possible CVA/TIA -Stroke protocol, neuro checks q4h -Consult neurology - discussed patient's increased symptoms - sent for CT head - image stable - MRI brain showed a punctate focus of restricted diffusion versus artifact within the right aspect of the shabbir. A tiny acute to subacute lacunar infarct is not excluded. - Echo - EF 50%, no PFO with bubble study -Head CT, head and neck CTA unremarkable -Trop wnl x 3 -Lipid fasting panel wnl except triglycerides 226 -Continue ASA,atorvastatin, gemfibrozil. Hold lisinopril for now for permissive HTN -EKG q am and prn chest pain -PT/OT - recommend return home HTN--stable -Hold lisinopril for now for permissive HTN HLD -Continue atorvastatin qd and gemfibrozil 600 mg PO BID DM II--last HgbA1c 8.2 in 2015, 7.2 here on recheck. Pt states that when he stopped drinking ETOH, he began drinking copious amounts soda instead (up to four 2L bottles/day), leading to hyperglycemia. He now drinks sugar free and has cut down amount. He does not take DM meds at home -Insulin sliding scale -Check BSGs q ac and qhs Gout--stable, no acute flares -Pt had recently filled prednisone dose pack just in case of flare but has not needed to use yet Fatty liver, h/o heavy ETOH use -ETOH level negative in ED -No drinks since 11/22/14 Thyroid nodule -11 mm nodule on left thyroid lobe noted, nonemergent follow up ultrasound recommended DVT prophylaxis -Enoxaparin 40 mg SC q24h -SALVADOR Kohli Code Status -Level I, FULL RESUSCITATION STATUS (Sujatha Almeida ., APRIL) Supervising Note Dr. Rico I performed a history and physical examination on the patient. I reviewed above note and agree with it. I discussed plan with APC and patient. During my face to face encounter with the patient, I answered all of the patient's questions. We are holding olivia inh for permissive hypertension. (Catracho Rico M.D.)
[2017-06-30] MEDS: ENOXAPARIN 40 MG/0.4 ML SYR SC SCH (17:24)
[2017-07-01 03:45] VITALS: BP 123/75; PULSE 68; TEMP 36.7; O2SAT 96
[2017-07-01] MEDS: SODIUM CHLORIDE 0.9% 1000ML 1,000 ML IV SCH (05:04)
[2017-07-01 06:01] LABS: BASO % 0.4 %; BASO ABS # 0.03 K/uL (0-0.2); EOS % 2.9 %; HEMATOCRIT 41.4 % (42-52); HEMOGLOBIN 14.4 g/dL (14.0-18.0); IG# 0.01 K/uL (0.00-0.02); LYMPH % 33.1 %; LYMPH ABS # 2.25 K/uL (1.2-3.4); MEAN CELL VOLUME 88.5 fL (80-100); MEAN CORPUSCULAR HEMOGLOBIN 30.8 pg (25-34); MEAN CORPUSCULAR HGB CONC 34.8 g/dl (32-36); MEAN PLATELET VOLUME 11.7 fL (7.4-10.4); MONO % 9.7 %; MONO ABS # 0.66 K/uL (0.11-0.59); NEUT % 53.8 %; NEUT ABS # 3.65 K/uL (1.4-6.5); PLATELET COUNT 150 K/uL (130-400); RED CELL DISTRIBUTION WIDTH CV 12.3 % (11.5-14.5); RED CELL DISTRIBUTION WIDTH SD 39.1 fL (36.4-46.3)
[2017-07-01 06:30] LABS: CALCIUM 8.7 mg/dl (8.5-10.1); CREATININE 0.78 mg/dl (0.60-1.40); POTASSIUM 3.9 mmol/L (3.5-5.1)
[2017-07-01 07:14] VITALS: BP 128/85; PULSE 68; TEMP 36.7; O2SAT 97
[2017-07-01] MEDS: GEMFIBROZIL 600 MG TAB PO SCH (07:55)
[2017-07-01] MEDS: ATORVASTATIN 40 MG TAB PO SCH (07:55)
[2017-07-01] MEDS: INSULIN ASPART 100 UNITS/ML 3 ML PEN SC SCH (07:59)
[2017-07-01 08:00] VITALS: O2SAT 97
[2017-07-01] MEDS ORDERED: CLOPIDOGREL BISULFATE 75 MG TAB PO SCH (09:00)
[2017-07-01] MEDS ORDERED: METF1TAB85 PO (10:12)
[2017-07-01] MEDS ORDERED: PLV75 PO (10:12)
[2017-07-01] MEDS ORDERED: LPT40 PO (10:12)
--- NOTE | 2017-07-01 10:20 | Discharge Instructions ---
Discharge Instructions Date of Service Jul 01, 2017. Admission Reason for Admission: Left Arm Weakness, Lower Extremity Weakness Discharge Discharge Diagnosis / Problem: Stroke Discharge Goals Goal(s): Improve function, Improve disease control, Diagnostic testing Activity Recommendations Activity Limitations: resume your previous activity Exercise/Sports Limitations: gradually increase as tolerated . Instructions / Follow-Up Instructions / Follow-Up Please keep your appointment with Rita Lundberg Friday at [address] Nicolas's office. Please follow up with Isatu Archer with neurology at on July 22 at 10:00 am at [address] [facility], [address], [place] [address] You will be starting with metformin for your diabetes. This is a medication that your primary care provider will likely titrate up. You will be going home with a glucose monitor. I would like you to check your blood sugar once a day rotating times: first thing in the morning, before a meal, and 2 hours after eating a meal. Please keep a log of your sugars to take to your primary care provider. Please purchase a home blood pressure monitor and take your blood pressure once a day after sitting quietly for 15 minutes. Please keep a log of the your blood pressures and take to your primary care provider. I will send you home with a prescription for outpatient Please follow up with your pcp concerning your thyroid nodule Risk Factors for Stroke: You can reduce your chances of stroke by working with your medical provider to adopt a healthy lifestyle. Some specific ways to lower your chance of stroke are: * If you are a smoker, now is the time to stop smoking cigarettes * If you are diabetic, improve the control of your blood sugars * Avoid excessive amounts of alcohol * Control high blood pressure * Lose weight if you are overweight * Be sure to lead an active lifestyle * Eat a healthy diet low in salt, cholesterol and fat You should know about other risk factors for stroke that you are unable to control. These include: * Age 55 years or older * Male gender * Certain racial groups: , or / * Family History of Stroke, Mini stroke or Heart Attack * Sickle Cell Disease Follow Up: It is important for you to keep your follow up appointments with your medical provider. Current Hospital Diet Patient's current hospital diet: AHA Diet (Heart Healthy), Diabetes Type 2 Diet Discharge Diet Recommended Diet: AHA Diet (Heart Healthy), Diabetes Type 2 Diet Procedures Procedures Performed: Head CT CT angiography Brain MRI Pending Studies Studies pending at discharge: no Laboratory Results Hemoglobin A1c Test 06/28/17 12:35 Range/Units Estimated Average Glucose 160 mg/dl Hemoglobin A1c 7.2 H 4.5-5.6 % Lipid Panel Test 06/29/17 04:10 Range/Units Triglycerides Level 226 H 0-150 mg/dl Cholesterol Level 176 0-200 mg/dl HDL Cholesterol 27 mg/dl Cholesterol/HDL Ratio 6.5 LDL Cholesterol, Calculated 104 mg/dl Medical Emergencies . Who to Call and When: Medical Emergencies: Call 911 immediately if you experience any of the following warning signs and symptoms of Stroke: * Sudden numbness or weakness of the face, arm or leg, especially on one side of the body * Sudden confusion, trouble speaking or understanding * Sudden trouble seeing in one or both eyes * Sudden trouble walking, dizziness, loss of balance or coordination * Sudden severe headache with no cause Do not delay calling 911 if you experience any warning signs or symptoms of a stroke. Delay in seeking medical attention may affect what treatments can be given to you. . Non-Emergent Contact Non-Emergency issues call your: Primary Care Provider Call Non-Emergent contact if: you have any medication questions . . "Provider Documentation" section prepared by Sujatha Almeida. . Stroke Core Measures Reason no t-PA for Stroke: Treatment not indicated Reason no antithrom by day 2: Treatment provided - N/A Reason no antithrom at D/C: Treatment provided - N/A Reason no statin at D/C: Treatment provided - N/A Reason no anticoag w/a fib: Treatment not indicated
--- NOTE | 2017-07-01 10:38 | Discharge Summary ---
Discharge Summary Date of Service Jul 01, 2017. Discharge Summary Admission Date: Jun 30, 2017 at 16:10 Discharge Date: Jul 01, 2017 Discharge Disposition: Home Principal Diagnosis: CVA Problems/Secondary Diagnoses: htn, hld, DMII, gout, Fatty liver, history of heavy ETOH use, Thyroid nodule Immunizations: Have You Had Influenza Vaccine: Yes History of Tetanus Vaccine?: Yes History of Pneumococcal: Unknown History of Hepatitis B Vaccine: No Procedures: CT SCAN OF THE BRAIN WITHOUT IV CONTRAST CLINICAL HISTORY: Left-sided weakness. Numbness. COMPARISON STUDY: CT and MRI of the brain dated 06/28/2017. TECHNIQUE: Unenhanced axial CT scan of the brain is performed from the vertex to the skull base. A dose lowering technique was utilized adhering to the principles of ALARA. CT DOSE: 638.56 mGycm FINDINGS: Brain parenchyma: The brain parenchyma is normal in appearance. There is no hemorrhage, mass effect, or evidence of acute territorial ischemia by CT criteria. Gunter-white matter is preserved. No extra-axial fluid collection is seen. Ventricles, sulci, cisterns: Normal in configuration. Intracranial vasculature: There is atherosclerotic calcification of the cavernous carotid and vertebral arteries. Calvarium: Unremarkable. Sinuses and mastoids: The visualized paranasal sinuses are clear. The mastoid air cells are well pneumatized. Orbits: The bony orbits are grossly intact. IMPRESSION: There is no hemorrhage, mass effect, or evidence of acute territorial ischemia by CT criteria. Electronically signed by: Nehemias Alegre M.D. 06/30/2017 11:01 AM BONY ORBITS 3 VIEWS CLINICAL HISTORY: MRI clearance. FINDINGS: 3 views of the bony orbits are obtained. Correlation is made with CT of the brain dated 06/28/2017. There is no radiodense/metallic foreign body seen in the region of the bony orbits. The bony orbits are intact as imaged. The visualized paranasal sinuses and the mastoid air cells appear clear. The imaged calvarium appears intact. IMPRESSION: There is no radiodense/metallic foreign body seen in the region of the bony orbits. Electronically signed by: Nehemias Alegre M.D. 06/28/2017 3:[address] ANGIOGRAM OF THE BRAIN; CT ANGIOGRAM OF THE NECK CLINICAL HISTORY: Strokelike symptoms. COMPARISON STUDY: Unenhanced CT of the brain performed the same day 06/28/2017. TECHNIQUE: Following the IV administration of 119 of Optiray 320, CT angiogram of the head and neck was performed from the aortic arch to the vertex. Images are reviewed in the axial, sagittal, and coronal planes. 3-D MIPS images are created and assessed. IV contrast was administered without complication. All measurements were calculated based on NASCET criteria. A dose lowering technique was utilized adhering to the principles of ALARA. CT DOSE: 1198.79 mGy.cm FINDINGS: Brain parenchyma: The brain parenchyma is normal in appearance. There is no hemorrhage, mass effect, or evidence of acute territorial ischemia by CT criteria. There is no evidence of enhancing mass lesion on the angiogram phase images. The ventricles, sulci, and cisterns are normal in configuration. Gunter-white matter differentiation is preserved. No extra-axial fluid collection is seen. Thoracic aorta: Visualized portions of the thoracic aorta are normal in caliber. The aortic arch demonstrates standard 3-vessel anatomy. Right carotid arterial system: The right common carotid artery is widely patent, as are the right internal and external carotid arteries. Left carotid arterial system: The left common carotid artery is widely patent, as are the left internal and external carotid arteries. Vertebral arteries: Widely patent bilaterally and codominant. Subclavian arteries: Widely patent bilaterally. Intracranial vasculature: There is mild atherosclerotic calcification of the cavernous carotid arteries. The internal carotid arteries are patent at the skull base, as are the anterior and middle cerebral arteries bilaterally. The vertebrobasilar system and posterior cerebral arteries are widely patent. The vertebral arteries are codominant. There is no aneurysm, high-grade stenosis, or focal vessel cut off seen throughout the intracranial circulation. Jugular veins: Widely patent bilaterally. Dural sinuses: Patent. Lung apices: Partially visualized upper lobe lung parenchyma appears clear. Soft tissues: The visualized pharyngeal soft tissues are normal in appearance noting angiographic phase technique. The oropharyngeal airway appears widely patent. The salivary glands are normal in appearance. 11 mm low-attenuation nodule is noted in the left thyroid lobe. No cervical lymphadenopathy is seen. Skeletal structures: The calvarium appears intact. The cervical spine is within normal limits. Sinuses and mastoids: The paranasal sinuses are clear. The mastoid air cells are well pneumatized. IMPRESSION: 1. There is no hemorrhage, mass effect, or evidence of acute territorial ischemia by CT criteria. 2. Unremarkable CT angiogram of the brain. 3. Unremarkable CT angiogram of the neck. 4. There is an 11 mm low-attenuation nodule in the left thyroid lobe. Follow-up with a nonemergent thyroid ultrasound is recommended. Electronically signed by: Nehemias Alegre M.D. 06/28/2017 1:[address] SCAN OF THE BRAIN WITHOUT IV CONTRAST CLINICAL HISTORY: Strokelike symptoms. COMPARISON STUDY: No priors. TECHNIQUE: Unenhanced axial CT scan of the brain is performed from the vertex to the skull base. A dose lowering technique was utilized adhering to the principles of ALARA. FINDINGS: Brain parenchyma: The brain parenchyma is normal in appearance. There is no hemorrhage, mass effect, or evidence of acute territorial ischemia by CT criteria. Gunter-white matter is preserved. No extra-axial fluid collection is seen. Ventricles, sulci, cisterns: Normal in configuration. Intracranial vasculature: There is atherosclerotic calcification of the cavernous carotid and vertebral arteries. Calvarium: Unremarkable. Sinuses and mastoids: The visualized paranasal sinuses are clear. The mastoid air cells are well pneumatized. Orbits: The bony orbits are grossly intact. IMPRESSION: There is no hemorrhage, mass effect, or evidence of acute territorial ischemia by CT criteria. Electronically signed by: Nehemias Alegre M.D. 06/28/2017 1:01 PM Consultations: Dr. Dumont from neurology Medication Reconciliation New Medications: Metformin Hcl (Metformin Hcl Er) 500 Mg Tab 1 TAB PO HS for 30 Days, #30 TAB 1 Refill Atorvastatin (Lipitor) 40 Mg Tab 40 MG PO QAM for 30 Days, #30 TAB Clopidogrel Bisulfate (Clopidogrel) 75 Mg Tab 75 MG PO QAM for 30 Days, #30 TAB Continued Medications: Lisinopril (Prinivil) 20 Mg Tab 20 MG PO QAM, 0 Refills Discontinued Medications: Aspirin (Aspirin) 325 Mg Tab 325 MG PO DAILY Gemfibrozil (Lopid) 600 Mg Tab 600 MG PO BID, 0 Refills Pravastatin (Pravachol ) 20 Mg Tab 20 MG PO QPM, 0 Refills Discharge Exam ROS Constitutional: no chills, aches, sweats or fever Respiratory: no sob,cough, sputum, or wheezing Cardiac: no chest pain, palpitations, edema, orthopnea or lightheadedness GI: no abdominal pain, nausea, vomiting, diarrhea or constipation : no dysuria or hesitancy Extremities: no joint pain or weakness Skin: no rash All other systems reviewed and negative Mr. Perry is feeling better than yesterday, continues to have some numbness in left arm and left facial droop. Ambulating the halls without difficulty General: no distress Eyes: normal inspection, PERLL Respiratory: chest non tender, clear to auscultation, normal breath sounds, no respiratory distress, no accessory muscle use Cardiac: regular rate and rhythm, no rub or gallop, no murmur, no edema, no jvd GI/: active bowel sounds, no abd pain or tenderness, soft, non distended Extremities: normal range of motion, normal strength, non tender Neuro/Psych: alert and oriented x 3, normal mood and affect, left mild facial droop, left mild arm pronator drift, left leg mild weakness, other alto singer intact Skin: normal color, dry Hospital Course 46 y/o male with a history of HTN, HLD, DM II, gout, and fatty liver who presented to the ED on 06/28 with bilateral lower extremity weakness and left arm weakness and tingling. CVA -Stroke protocol, neuro checks q4h -Consulted neurology - discussed patient's increased symptoms yesterday after arguing with his family - sent for CT head - image stable; symptoms have improved today - MRI brain showed a punctate focus of restricted diffusion versus artifact within the right aspect of the shabbir. A tiny acute to subacute lacunar infarct is not excluded. - Echo - EF 50%, no PFO with bubble study -Head CT, head and neck CTA unremarkable except for thyroid nodule, see below -Trop wnl x 3 -Lipid fasting panel wnl except triglycerides 226 -Discontinued gemfibrozil and ASA as patient had the stroke while on aspirin therapy. Per neuro rec, changed to Plavix. Atorvastatin 40mg initiated. Held lisinopril for permissive HTN, can restart for home -EKG q am and prn chest pain -PT/OT - recommend return home - pt/ot outpatient after discharge - stroke risk factors discussed including patient family history and personal history of uncontrolled dm and history of htn HTN--stable -Held lisinopril for permissive HTN - restart at home - advised patient to use a home blood pressure monitor to log pressures and take to pcp HLD -Continue atorvastatin qd, hold gemfibrozil until seen by pcp, could consider restarting if necessary DM II--last HgbA1c 8.2 in 2015, 7.2 here on recheck. Pt states that when he stopped drinking ETOH, he began drinking copious amounts soda instead (up to four 2L bottles/day), leading to hyperglycemia. He now drinks sugar free and has cut down amount. He does not take DM meds at home -Insulin sliding scale while inpatient and ac/hs bsg checks -DM education - patient will go home with glucometer with instruction for once daily checks rotating between first thing in the morning, ac and post prandial. He will be started on metformin. Risks and benefits discussed and he is agreeable. Gout--stable, no acute flares -Pt had recently filled prednisone dose pack just in case of flare but has not needed to use yet Fatty liver, h/o heavy ETOH use -ETOH level negative in ED -No drinks since 11/22/14 Thyroid nodule -11 mm nodule on left thyroid lobe noted, nonemergent follow up ultrasound recommended Supervising Note Dr. Rico I performed a history and physical examination on the patient. I reviewed above note and agree with it. I discussed plan with APC and patient. During my face to face encounter with the patient, I answered all of the patient's questions. will discharge on statin, plavix, will resume olivia inhibitor as outpatient. Total Time Spent: Greater than 30 minutes This includes examination of the patient, discharge planning, medication reconciliation, and communication with other providers. Discharge Instructions Please refer to the electronic Patient Visit Report (Discharge Instructions) for additional information. Follow-Up neurology with Isatu Archer 07/22 PCP office 07/04 PT/OT Additional Copies To Rita Lundberg P.A.
[2017-07-01 12:00] VITALS: O2SAT 97
[2017-07-01 12:08] VITALS: BP 142/93; PULSE 76; TEMP 36.9; O2SAT 95
[2017-07-01 12:25] VITALS: BP 128/85; PULSE 68; TEMP 36.7; O2SAT 97
--- NOTE | 2017-07-01 12:43 | Pharmacy Progress Note ---
Pharmacist Stroke Counseling Date of Service Jul 01, 2017. Scope Pharmacy has been consulted to provide medication discharge counseling for this patient admitted with ischemic stroke as per the Pharmacist Discharge Counseling for Stroke Patients Protocol. Medications on Discharge New Medications: Metformin Hcl (Metformin Hcl Er) 500 Mg Tab 1 TAB PO HS for 30 Days, #30 TAB 1 Refill Atorvastatin (Lipitor) 40 Mg Tab 40 MG PO QAM for 30 Days, #30 TAB Clopidogrel Bisulfate (Clopidogrel) 75 Mg Tab 75 MG PO QAM for 30 Days, #30 TAB Continued Medications: Lisinopril (Prinivil) 20 Mg Tab 20 MG PO QAM, 0 Refills Discontinued Medications: Aspirin (Aspirin) 325 Mg Tab 325 MG PO DAILY Gemfibrozil (Lopid) 600 Mg Tab 600 MG PO BID, 0 Refills Pravastatin (Pravachol ) 20 Mg Tab 20 MG PO QPM, 0 Refills Action The above medications, specifically ones for stroke treatment and prophylaxis, have been reviewed in detail with the patient prior to discharge. This includes indication, common adverse reactions, drug interactions, and medication administration. Medication counseling has been employed using the teach-back method to ensure understanding. Outcome The patient have demonstrated understanding of the medications. Please note, they are aware that the pharmacist will call them within 72 hours post-discharge to confirm that the appropriate medications are being taken and answer any further medication related questions the patient might have at that time. Contact information Individual to be contacted: self Relationship to patient (if applicable): N/A Phone number: [phone] Best time to call: anytime this week Additional comments: Spoke with patient today regarding his new medications and the medications stopped. Reviewed importance of Lipitor and Plavix (reviewed Prilosec interaction as well as the importance of letting your providers know you are on Plavix). Patient inquired whether the Lipitor would reduce the plaques already formed. Stated to patient that I would look this up as was uncertain of the answer. With further research it appears that this is possible however at lower LDL levels (e.g. below 70). It can be upwards of 25% reduction. Patient notified that we would call him again on and would have more information about his question. Thank you for allowing pharmacy to be involved in the care of this patient. Please call [phone] or [phone] with any additional questions
--- NOTE | 2017-07-04 15:47 | Pharmacy Progress Note ---
Pharmacist Post D/C Phone Note Date of phone call: Jul 04, 2017. The patient and/or patient healthcare representative(s) were unable to be reached for a follow-up phone call within the 72 hour time frame. Discharge counseling pharmacist contact information has already been provided to the patient should questions arise. Thank you for allowing us to be involved in the care of this patient.
== END 2017-07-01 13:19 | disposition home or self-care (01) | DRG 65 ==
LOC: C.EDB 12:15 → C.2E 14:41 → ENRESERV 15:30 → UNDOADMOB 17:46 → C.2E 17:46 → OBSVTOIN 06-30 16:10
PROVIDERS: ADMIT Hospitalist; ATTEND Internal Medicine Sports Medicine
DX: I63.8 Other cerebral infarction (principal); G81.94 Hemiplegia, unspecified affecting left nondominant side; R47.81 Slurred speech; R47.1 Dysarthria and anarthria; R27.8 Other lack of coordination; R29.703 NIHSS score 3; E04.1 Nontoxic single thyroid nodule; F10.11 Alcohol abuse, in remission; K76.0 Fatty (change of) liver, not elsewhere classified; I10 Essential (primary) hypertension; E78.5 Hyperlipidemia, unspecified; E11.9 Type 2 diabetes mellitus without complications; F17.220 Nicotine dependence, chewing tobacco, uncomplicated; Z51.81 Encounter for therapeutic drug level monitoring; Z79.899 Other long term (current) drug therapy; Z79.82 Long term (current) use of aspirin; Z83.3 Family history of diabetes mellitus; Z82.49 Family history of ischemic heart disease and other diseases of the circulatory system; Z82.5 Family history of asthma and other chronic lower respiratory diseases

== ENCOUNTER → 2017-07-14 | Outpatient (CLI) | payer OTHER ==
[~2017-07-14] MED LIST changes: -ALL100 PO; -ASPEC81 PO; -CLC100 PO; -GEMF600T3 PO; +LPT40 PO; +METF1TAB85 PO; -ODVTWSS PO; +PLV75 PO; -PRAV20TA PO; -SENN-61 PO
--- NOTE | 2017-07-14 13:10 | DIAGNOSTIC IMAGING REPORT ---
THYROID ULTRASONOGRAPHY CLINICAL HISTORY: THYROID NODULE COMPARISON STUDY: CT scan dated 06/28/2017 FINDINGS: The right lobe measures 49 x 13 x 16 mm. The left lobe measures 51 x 15 x 16 mm. There is a circumscribed minimally hypoechoic mid pole left lobe nodule measuring 12 x 10 x 10 mm. Given the size of the lesion and morphologic characteristics, surveillance would be appropriate unless the patient desires definitive cytologic diagnosis. IMPRESSION: 12 mm circumscribed mid pole left lobe thyroid nodule Electronically signed by: Jcarlos Chester M.D. 07/14/2017 1:09 PM Dictated Date/Time: 07/14/2017 1:06 PM
== END | disposition home or self-care (01) ==
LOC: C.ULTR 12:08
PROVIDERS: ATTEND Physician Assistant Medical
DX: E04.1 Nontoxic single thyroid nodule (principal)

== ENCOUNTER → 2017-10-29 | Outpatient (CLI) | payer OTHER ==
[2017-10-29 12:37] LABS: BASO % 0.4 %; BASO ABS # 0.03 K/uL (0-0.2); EOS % 3.1 %; EOS ABS # 0.24 K/uL (0-0.5); HEMATOCRIT 43.3 % (42-52); HEMOGLOBIN 14.6 g/dL (14.0-18.0); IG# 0.01 K/uL (0.00-0.02); LYMPH % 24.9 %; MEAN CELL VOLUME 89.8 fL (80-100); MEAN CORPUSCULAR HEMOGLOBIN 30.3 pg (25-34); MEAN CORPUSCULAR HGB CONC 33.7 g/dl (32-36); MEAN PLATELET VOLUME 12.2 fL (7.4-10.4); MONO % 8.1 %; MONO ABS # 0.62 K/uL (0.11-0.59); NEUT % 63.4 %; NEUT ABS # 4.84 K/uL (1.4-6.5); PLATELET COUNT 157 K/uL (130-400); RED CELL DISTRIBUTION WIDTH CV 13.1 % (11.5-14.5); RED CELL DISTRIBUTION WIDTH SD 43.1 fL (36.4-46.3); WHITE BLOOD COUNT 7.64 K/uL (4.8-10.8)
[2017-10-29 12:58] LABS: HEMOGLOBIN A1C 6.5 % (4.5-5.6)
[2017-10-29 13:10] LABS: ALKALINE PHOSPHATASE 84 U/L (45-117); ALT/SGPT 40 U/L (12-78); AST/SGOT 20 U/L (15-37); BLOOD UREA NITROGEN 16 mg/dl (7-18); CALCIUM 8.6 mg/dl (8.5-10.1); CARBON DIOXIDE 24 mmol/L (21-32); CHOLESTEROL 111 mg/dl (0-200); CREATININE 0.86 mg/dl (0.60-1.40); GLUCOSE 148 mg/dl (70-99); LDL CHOLESTEROL CALCULATED 57 mg/dl; POTASSIUM 3.8 mmol/L (3.5-5.1); SODIUM 137 mmol/L (136-145); TOTAL PROTEIN 7.5 gm/dl (6.4-8.2)
== END | disposition home or self-care (01) ==
LOC: C.LABBFT 09:50
PROVIDERS: ATTEND Physician Assistant Medical
DX: I10 Essential (primary) hypertension (principal)

== ENCOUNTER → 2017-10-30 | Outpatient (CLI) | payer OTHER | END | disposition home or self-care (01) | LOC: C.LABSPEC 09:36 | PROVIDERS: ATTEND Internal Medicine | DX: I10 Essential (primary) hypertension (principal) ==

== ENCOUNTER 2020-07-16 01:29 | Observation (INO) ==
[2020-07-16] MEDS ORDERED: oxyCODONE HCL IR 5 MG TAB (IMMEDIATE RELEASE) PO STA (01:39)
--- NOTE | 2020-07-16 01:48 | Emergency Department Note ---
History of Present Illness General Chief complaint: Fall Stated complaint: FALL - L ARM POSSIBLE BREAK Time Seen by Provider: 07/16/20 01:36 History of Present Illness Maximum Pain Intensity: 8 This 49-year-old on Plavix presents to the ER complaining of fall who hit his head and injured his left wrist Location: Head and wrist Quality: Painful Severity: Moderate Duration: Tonight Timing: Patient fell while fishing Context: Patient was concerned and came in Modifying factors: better with rest; worse with activity Patient denies loss of conscious, neck pain, chest pain, dyspnea, numbness, tingling, elbow pain, finger pain or any other medical complaints. No prior fracture to this area. Home Medications Medication Instructions Recorded Confirmed Type atorvastatin 40 mg tablet 40 mg PO QAM #90 tab 09/03/19 07/16/20 Rx clopidogrel 75 mg tablet 75 mg PO QAM #90 tab 09/03/19 07/16/20 Rx lisinopril 20 mg tablet 20 mg PO QAM #90 tab 09/03/19 07/16/20 Rx sildenafil (pulm.hypertension) 20 See Rx Instructions PO ONCE #30 tab 11/29/19 07/16/20 Rx mg tablet glimepiride 2 mg tablet 2 mg PO DAILY #90 tab 05/29/20 07/16/20 Rx Allergies Allergy/AdvReac Type Severity Reaction Status Date / Time No Known Allergies Allergy Verified 07/16/20 01:35 Past Med/Surg History Medical History (Updated 07/16/20 @ 02:58 by Arabella Koenig PA-C) Diabetes mellitus, type 2 Gout Hyperlipidemia Hypertension Stroke 2017 (REASON FOR PLAVIX) Surgical History History of total hip arthroplasty RT Family History Father , Age 40 Myocardial infarction Grandmother (Paternal) Arthritis Mother COPD (chronic obstructive pulmonary disease) Grandmother (Maternal) Family history of diabetes mellitus Denies family history of Ovarian cancer Prostate cancer Breast cancer Colorectal cancer Social History Smoking Status: Never smoker Second Hand Exposure: Yes (HX OF (NOTHING CURRENT)); Hx Alcohol Use: No Hx Substance Use: No Preferred Language: Swiss Communication Ability: Effective Visual Impairment: No Limitations Hearing Ability: Normal Outreach Representative Required: No Beliefs That Will Affect Care: None marital status: Current Living Situation: Alone current occupational status: employed current occupation: maintenance dept at [employer] Feels Safe at Home: Yes Childhood Exposure to Second-Hand Smoke: Yes caffeine: Yes during the past year weight has: remained stable Dental Care, Regularly: No Physical Activity Frequency: Daily Seatbelt Use: always Sunscreen Use: No Assistive Devices: None Review of Systems A total of 10 systems reviewed and were otherwise negative Physical Exam Vital Signs Vital Signs - 24 hr 07/16/20 01:33 07/16/20 02:41 Temperature 36.6 C Temperature Source Temporal Artery Scan Pulse Rate [Finger] 97 H Pulse Rhythm [Finger] Regular Respiratory Rate 92 H 18 Respiratory Effort / Characteristics Non-Labored Non-Labored Respiratory Depth Normal Normal Blood Pressure 193/111 H Blood Pressure [Right Arm] 159/92 H Blood Pressure Mean 138 Blood Pressure Mean [Right Arm] 114 Pulse Oximetry 98 96 Oxygen Delivery Method Room Air Room Air Sepsis Recent Fever Within 48 Hours No Sepsis New/Unexplained Change in Mental Status N/A Sepsis Action Taken by Nursing No Action Required VITALS: Vitals are noted on the nurse's note and reviewed by myself. Vital signs hypertensive. GENERAL: Pleasant male who appears in pain, in no acute distress, nondiaphoretic, well-developed well-nourished. SKIN: Left hand contusion, the skin was without rashes, erythema, edema, or bruising. There is no tenting of the skin. Capillary reflex less than 2 seconds. HEAD: Normocephalic atraumatic. EARS: External auditory canals clear, tympanic membranes pearly carter without erythema or effusion bilaterally. EYES: Pupils equal round and reactive to light and accommodation. Conjunctivae without injection, sclerae without icterus. Extraocular movements intact. NOSE: Patent, turbinates without inflammation or discharge. No sinus tenderness. MOUTH: Mucous membranes moist. Pharynx without erythema or exudate. Uvula midline. Airway patent. Tongue does not deviate. NECK: Supple without nuchal rigidity. No lymphadenopathy. No thyromegaly. Cervical spine is nontender. No JVD. HEART: Regular rate and rhythm LUNGS: Clear to auscultation bilaterally without wheezes, rales or rhonchi. No retractions or accessory muscle use. ABDOMEN: Positive bowel sounds x 4. Normal tympanic percussion. Soft, nontender, without masses or organomegaly. Bardales sign negative. No guarding or rebound tenderness. No CVA tenderness MUSCULOSKELETAL: No muscle atrophy, erythema, or edema noted. No C-spine thoracic or lumbar tenderness. Left wrist with deformity tender to palpation. Left elbow hand and fingers nontender to palpation. All other extremities nontender to palpation with full range of motion. NEURO: Patient was alert and oriented to person place and time. Normal sensation to light and sharp touch. No focal neurological deficits. Course Administered Medications Discontinued Medications Oxycodone HCl (Oxycodone Hcl Ir 5 Mg Tab (Immediate Release)) 5 mg PO NOW STA Stop: 07/16/20 01:40 Last Admin: 07/16/20 01:47 Dose: 5 mg Documented by: [id number] Medical Decision Making Medical Records Attestation: I reviewed the patient's medical records. Home Medications Current Medication List: was personally reviewed by me Imaging Data Attestation: I personally reviewed and interpreted this imaging study as follows: Head Trauma GCS Score: 15 MDM Narrative Prior records/ancillary studies reviewed. Triage Nursing notes reviewed. Additional history obtained from family. The patient's history was concerning for traumatic injury Differential diagnosis: Etiologies such as concussion, contusion, fracture, subdural hematoma, epidural hematoma, intraparenchymal hemorrhage, as well as other traumatic pathologies were entertained. Physical examination findings: As above. ER treatment provided: P.o. OxyIR On reassessment the patient felt better. Diagnostics interpreted by me: Imaging studies: Preliminary Findings Only See Final Report For Complete Findings CT HEAD: No acute or focal intracranial abnormality. No evidence of cranial fracture. Radiologist: Mendoza Silver MD Wrist x-ray: Distal radius and ulnar fracture with displacement and comminuted per my interpretation Forearm fracture shows distal radius and ulnar fracture with the placement per my interpretation. Head injury evaluation: GCS <15 two hours after injury: 0 Suspected open or depressed skull fracture: 0 Any sign of basilar skull fracture: hemotympanum, raccoon eyes (intraorbital bruising), Grider sign (retroauricular bruising), or cerebrospinal fluid leak, maribeth- or rhinorrhea: 0 Two or more episodes of vomitin Sixty-five years of age or older: 0 Amnesia for events occurring more than 30 minutes prior to impact: 0 Dangerous mechanism (pedestrian struck by motor vehicle, occupant ejected from motor vehicle, fall from =3 feet or =5 stairs): 0 Neurologic deficit: 0 Seizure: 0 Presence of bleeding diathesis or oral anticoagulant use: yes Return visit for reassessment of a head injury: 0 Total:(any yes, then CT)yes Consultation: I consulted orthopedics, Dr. Soria and recommends splint and he will admit the patient for surgery in the morning. Splinting Indication: Left wrist fracture Location: Left wrist Type of fx: Displaced Verbal consent obtained. Risks and benefits were explained with the usual c ustomary discussion. The injured extremity was identified. The patient was prepped and measured for the placement of a volar ortho-glass splint. Splint applied in the standard fashion over a layer of webril and secured using an elastic bandage. Set into a position of function. Normal neurovascular status after placement verified by me. The patient tolerated the procedure well and the care of the splint was discussed with the patient/family. No complications. It appears the patient has a head injury with wrist fracture. Patient was splinted as above. Patient was admitted to orthopedic surgical service. He was placed n.p.o. By the evaluation outlined above emergent etiologies such as subdural hematoma, epidural hematoma, intraparenchymal hemorrhage, as well as others were deemed relatively unlikely. The pt informed about the findings as listed above. All questions were answered and pleased with the treatment. The chart was completed utilizing [employer] Speech voice recognition software. Grammatical errors, random word insertions, pronoun errors, and incomplete sentences are an occassional consequence of this system due to software limitations, ambient noise, and hardware issues. Any formal questions or concerns about the content, text, or information contained within the body of this dictation should be directly addressed to the physician mailroom assistant for c larification. Impression & Plan Fracture of wrist, Fall, Head injury Discharge Plan Visit Data Chief Complaint: Fall Stated Complaint: FALL - L ARM POSSIBLE BREAK ED Provider: [facility] ED Midlevel Provider: Arabella Koenig Discharge Problem: Fracture of wrist, Fall, Head injury Patient Disposition: Admitted As Inpatient Condition: Good Forms Stand Alone Forms: My [employer] Prescriptions Prescriptions: No Action atorvastatin 40 mg tablet 40 mg PO QAM Qty: 90 RF: 3 clopidogrel 75 mg tablet 75 mg PO QAM Qty: 90 RF: 3 lisinopril 20 mg tablet 20 mg PO QAM Qty: 90 RF: 3 glimepiride 2 mg tablet 2 mg PO DAILY Qty: 90 RF: 3 sildenafil (pulm.hypertension) 20 mg tablet See Rx Instructions PO ONCE Qty: 30 RF: 5 Referrals Referrals: Brock Nicolas III, MD [Primary Care Provider] - Discharge Problem: Fracture of wrist Qualifiers: Encounter type: initial encounter Fracture type: closed Laterality: left Qualified Code(s): S62.102A - Fracture of unspecified carpal bone, left wrist, initial encounter for closed fracture
[2020-07-16 03:53] LABS: Basophils # (auto) 0.02 K/uL (0-0.2); Basophils % (auto) 0.2 %; Eosinophils # (auto) 0.05 K/uL (0-0.5); Eosinophils % (auto) 0.5 %; Hematocrit (blood only) 42.9 % (42-52); Hemoglobin 14.9 g/dL (14.0-18.0); Immature Granulocytes # (auto) 0.02 K/uL (0.00-0.02); Immature Granulocytes % (auto) 0.2 %; Lymphocytes # (auto) 0.97 K/uL (1.2-3.4); Lymphocytes % (auto) 8.9 %; Mean Corpuscular Hemoglobin 32.8 pg (25-34); Mean Corpuscular Hgb Conc 34.7 g/dL (32-36); Mean Corpuscular Volume 94.5 fL (80-100); Mean Platelet Volume 10.9 fL (7.4-10.4); Monocytes % (auto) 5.5 %; Neutrophils # (auto) 9.18 K/uL (1.4-6.5); Neutrophils % (auto) 84.7 %; Platelet Count 182 K/uL (130-400); RDW Coefficient of Variation 12.5 % (11.5-14.5); RDW Standard Deviation 43.1 fL (36.4-46.3); Red Blood Count 4.54 M/uL (4.7-6.1); White Blood Count 10.84 K/uL (4.8-10.8)
[2020-07-16 04:03] LABS: Prothrombin Time 10.1 Seconds (9.0-12.0)
[2020-07-16 04:16] LABS: Influenza A virus by PCR Negative (Neg); Influenza B virus by PCR Negative (Neg); RSV by PCR Negative (Neg); SARS CoV2 RNA(COVID-19) InHosp NEGATIVE (Negative)
[2020-07-16 04:24] LABS: BUN Creatinine Ratio 13.9 (10-20); Calcium 8.4 mg/dl (8.5-10.1); Creatinine Clr Calc Pharmacy 119.7 ml/min; Est GFR (African American) 124.5; Est GFR (Non-African American) 107.4
[2020-07-16] MEDS ORDERED: ONDANSETRON INJ 2 MG/ML 2 ML VIAL IV PRN ×2 (04:30→07:24)
[2020-07-16] MEDS ORDERED: SODIUM CHLORIDE 0.9% 1000ML 1,000 ML IV SCH ×2 (04:30→10:28)
[2020-07-16] MEDS: MoRPHine SULFATE 2 MG/ML CARP IV PRN ×2 (05:21→11:06)
[2020-07-16] MEDS ORDERED: ceFAZolin 2000MG 2,000 MG/15 ML SYR IV SCH (06:00)
[2020-07-16] MEDS ORDERED: ATROPINE SULFATE 0.1 MG/ML 10ML SYR IV PRN (07:24)
[2020-07-16] MEDS ORDERED: ePHEDrine sulfate 50 MG/ML AMP IV PRN (07:24)
[2020-07-16] MEDS ORDERED: fentaNYL citrate 100 MCG/2 ML VIAL IV PRN (07:24)
[2020-07-16] MEDS ORDERED: MIDAZOLAM HCL 1 MG/ML 2ML VIAL ONE (07:37)
[2020-07-16] MEDS ORDERED: fentaNYL citrate 100 MCG/2 ML VIAL ONE (07:37)
[2020-07-16] MEDS ORDERED: EPINEPHrine INJ 1 MG/ML AMP ONE (07:39)
[2020-07-16] MEDS ORDERED: BUPIVACAINE 0.25% 30 ML VIAL ONE (07:40)
--- NOTE | 2020-07-16 07:40 | Anesthesiology Consultation ---
Date of Service July 16, 2020 Assessment & Plan (1) Encounter for pre-operative examination: Chart Review Chart Review: Acceptable Risk for Surgery Consults Requested none Proposed Anesthesia Risk / Benefits Reviewed With: PT / POA / Parent / Guardian, Accepts Plan and Informed Consent Obtained History Surgery Operation Date: 07/16/20 07:00 Proposed Procedures p Open Reduction Internal Fixation Arm(Left) - Rah Soria DO Operation Date: 07/16/20 08:00 Proposed Procedures p Open Reduction Internal Fixation Radius(Left) - Rah Soria DO Height/Weight Height: 5 ft 9 in Weight: 94.4 kg Allergies Allergy/AdvReac Type Severity Reaction Status Date / Time No Known Allergies Allergy Verified 07/16/20 01:35 Medications Home Medications Medication Instructions Recorded Confirmed Last Taken atorvastatin 40 mg tablet 40 mg PO QAM #90 tab 09/03/19 07/16/20 Unknown clopidogrel 75 mg tablet 75 mg PO QAM #90 tab 09/03/19 07/16/20 Unknown lisinopril 20 mg tablet 20 mg PO QAM #90 tab 09/03/19 07/16/20 Unknown sildenafil (pulm.hypertension) 20 See Rx Instructions PO ONCE #30 tab 11/29/19 07/16/20 Unknown mg tablet glimepiride 2 mg tablet 2 mg PO DAILY #90 tab 05/29/20 07/16/20 Unknown Active Medications Generic Name Dose Route Start Last Admin Trade Name Freq PRN Reason Stop Dose Admin Sodium Chloride 1,000 mls @ 80 mls/hr 07/16/20 04:30 07/16/20 05:28 Nss 1000ml IV 08/15/20 04:29 80 mls/hr .[id number] DANGELO Administration Morphine Sulfate 2 mg 07/16/20 04:30 07/16/20 05:21 Morphine Sulfate 2 Mg/Ml Carp IV 07/30/20 04:29 2 mg Q2H PRN Administration Pain NPO Date Last Intake of Fluids: 07/16/20 Time Last Intake of Fluids: 01:00 Date Last Intake of Solids: 07/15/20 Time Last Intake of Solids: 18:00 Past Medical History Medical History Diabetes mellitus, type 2 Gout Hyperlipidemia Hypertension Stroke 2017 (REASON FOR PLAVIX) Exercise / Class Metabolic Activity II 4-5 Yardwork/Stairs/Walk up hill Past Family History Family History Father , Age 40 Myocardial infarction Grandmother (Paternal) Arthritis Mother COPD (chronic obstructive pulmonary disease) Grandmother (Maternal) Family history of diabetes mellitus Denies family history of Ovarian cancer Prostate cancer Breast cancer Colorectal cancer Past Surgical History Surgical History History of total hip arthroplasty RT Past Anesthesia History No Hx of Anesthesia Complications and No Family Hx of Anesthesia Complications History of PONV No Hx of PONV and No Hx of Motion Sickness Social History Smoking Status: Never smoker tobacco type: smokeless tobacco Hx Alcohol Use: No Hx Substance Use: No substance use type: does not use Physical Exam Vital Signs Last Vital Signs Temp 99.3 F 07/16/20 06:12 Pulse 93 H 07/16/20 06:12 Resp 16 07/16/20 06:12 BP 162/87 H 07/16/20 06:12 Pulse Ox 96 07/16/20 06:12 ENMT Mouth: no dentition abnormality Thyromental Distance: > or= 3.5 Finger Breadths Mallampati Class: II Neck normal visual inspection Respiratory normal respiratory effort Auscultation: lungs clear to auscultation bilaterally Cardiovascular Rate/Rhythm: regular rate and regular rhythm Testing Laboratory Results 07/16/20 03:41 07/16/20 03:41 PT 10.1 Seconds (9.0-12.0) 07/16/20 03:41 INR 1.0 (0.9-1.1) 07/16/20 03:41
[2020-07-16] MEDS ORDERED: PROPOFOL IV EMULSION 10 MG/ML 20 ML VIAL IV ONE (07:44)
[2020-07-16] MEDS ORDERED: ONDANSETRON INJ 2 MG/ML 2 ML VIAL ONE (07:44)
[2020-07-16] MEDS ORDERED: LIDOCAINE HCL 2% 2 ML VIAL/AMP(20MG/ML) INFIL ONE (07:44)
--- NOTE | 2020-07-16 07:52 | History & Physical Report ---
Date of Service July 16, 2020 Assessment & Plan (1) Fracture of wrist: We will proceed with an open reduction internal fixation of the left wrist. He understands the risk, benefits, and alternatives of procedure is elected to proceed. Questions were answered and consents were signed. Time was spent describing the procedure and postoperative expectations. We will take him to the operating room this morning. He is currently n.p.o. We plan to discharge him home postoperatively. History of Present Illness Chief Complaint: Left distal radius fracture. Primary Care Provider: Brock Valentine is a 49-year-old male who was out fishing last night when he slipped and fell on the rocks. He fell on his left outstretched hand. He had immediate left wrist pain. He came to [facility] in the emergency room and radiographs demonstrated a volar displaced left distal radius fracture. He was placed in a splint and admitted to orthopedic service for operative fixation the following day.. Allergies Allergy/AdvReac Type Severity Reaction Status Date / Time No Known Allergies Allergy Verified 07/16/20 01:35 Home Medications Medication Instructions Recorded Confirmed Type atorvastatin 40 mg tablet 40 mg PO QAM #90 tab 09/03/19 07/16/20 Rx clopidogrel 75 mg tablet 75 mg PO QAM #90 tab 09/03/19 07/16/20 Rx lisinopril 20 mg tablet 20 mg PO QAM #90 tab 09/03/19 07/16/20 Rx sildenafil (pulm.hypertension) 20 See Rx Instructions PO ONCE #30 tab 11/29/19 07/16/20 Rx mg tablet glimepiride 2 mg tablet 2 mg PO DAILY #90 tab 05/29/20 07/16/20 Rx Past Med/Surg History Medical History Diabetes mellitus, type 2 Gout Hyperlipidemia Hypertension Stroke 2018 (REASON FOR PLAVIX) Surgical History History of total hip arthroplasty RT Family History Father , Age 40 Myocardial infarction Grandmother (Paternal) Arthritis Mother COPD (chronic obstructive pulmonary disease) Grandmother (Maternal) Family history of diabetes mellitus Denies family history of Ovarian cancer Prostate cancer Breast cancer Colorectal cancer Social History Smoking Status: Never smoker Second Hand Exposure: Yes (HX OF (NOTHING CURRENT)); Hx Alcohol Use: No Hx Substance Use: No Preferred Language: Luxembourger Communication Ability: Effective Visual Impairment: No Limitations Hearing Ability: Normal Tree Trimmer Helper Required: No Beliefs That Will Affect Care: None marital status: Current Living Situation: Alone and Family current occupational status: employed current occupation: maintenance dept at [employer] Feels Safe at Home: Yes Safety Concerns: Feels Safe At This Time Childhood Exposure to Second-Hand Smoke: Yes caffeine: Yes during the past year weight has: remained stable Dental Care, Regularly: No Physical Activity Frequency: Daily Seatbelt Use: always Sunscreen Use: No Assistive Devices: None Review of Systems All systems reviewed & are unremarkable except as noted in HPI & below. Physical Exam On physical examination of the left wrist, he has a volar splint in place. He has motion of his fingers. There is minimal swelling at this time.. Constitutional WD/WN, vitals as above Eyes PERRL, conjunctivae normal, anicteric sclerae ENMT external ear and nose normal, oropharynx normal Neck trachea midline, no thyromegaly Respiratory normal respiratory effort Cardiovascular RRR, no murmur, no edema Gastrointestinal (Abdomen) normal bowel sounds, soft, nontender, no hepatosplenomegaly Psychiatric A+Ox3, euthymic affect Results & Data Results & Data Laboratory Results . Diagnostic Findings X-rays of the left wrist do show a volar displaced left distal radius fracture. PG Care Time/CCT Total # of Minutes Spent Total Time Spent with Patient: Total time spent is greater than 50% in coordination of care (as documented) at patient's floor/unit and/or counseling patient: Coding Level of Care Code 07828 Initial Inpt Care Lvl 2 (57 - DECISION FOR SURGERY) Diagnoses Fracture of wrist S62.102A Encounter type: initial encounter Fracture type: closed Laterality: left (1) Fracture of wrist Encounter type: initial encounter Fracture type: closed Laterality: left Qualified Code(s): S62.102A - Fracture of unspecified carpal bone, left wrist, initial encounter for closed fracture
[2020-07-16] MEDS ORDERED: METOCLOPRAMIDE HCL INJ 5 MG/ML 2 ML VIAL ONE (08:08)
--- NOTE | 2020-07-16 08:11 | XRay Report ---
TWO VIEW CHEST CLINICAL HISTORY: Wrist fractures. Preoperative examination. FINDINGS: PA and lateral chest radiographs are compared to study dated 04/19/2010. The cardiomediastin al silhouette is unremarkable. The lungs and pleural spaces are clear. There is no pneumothorax. The skeletal structures are osteopenic. The bony thorax appears intact. IMPRESSION: No active disease in the chest. ACT 112: Negative or not required by law. Electronically signed by: Nehemias Alegre M.D. 07/16/2020 8:10 AM
--- NOTE | 2020-07-16 08:13 | CT Scan Report ---
CT SCAN OF THE BRAIN WITHOUT IV CONTRAST CLINICAL HISTORY: Fall. COMPARISON STUDY: CT of the brain dated 06/30/2017. TECHNIQUE: Unenhanced axial CT scan of the brain is performed from the vertex to the skull base. A d ose lowering technique was utilized adhering to the principles of ALARA. CT DOSE: 614.27 mGy.cm FINDINGS: Brain parenchyma: The brain parenchyma is normal in appearance. There is no hemorrhage, mass effect, or evidence of acute territorial ischemia by CT criteria. Gunter-white matter differentiation is preser gianfranco. No extra-axial fluid collection is seen. Ventricles, sulci, cisterns: Normal in configuration. Intracranial vasculature: There is atherosclerotic calcification of the cavernous carotid and vertebr al arteries. Calvarium: There is no depressed calvarial fracture. Sinuses and mastoids: The visualized paranasal sinuses are clear. The mastoid air cells are well pneu matized. Orbits: The bony orbits are grossly intact. IMPRESSION: There is no hemorrhage, mass effect, or evidence of acute territorial ischemia by CT logan mendes. ACT 112: Negative or not required by law. Electronically signed by: Nehemias Alegre M.D. 07/16/2020 8:12 AM
--- NOTE | 2020-07-16 08:54 | XRay Report ---
XR wrist LT min 3V routine CLINICAL HISTORY: deneen COMPARISON: None FINDINGS: Note is made of a markedly comminuted and significantly displaced distal left radial fract ure with intra-articular extension. There are multiple bone fragments. There is volar displacement of the distal component. Associated wrist and hand soft tissue swelling is present. There is a displace d fracture of the ulnar styloid. No definite acute carpal bone fracture is noted. IMPRESSION: 1. Markedly comminuted, significantly displaced distal left radial fracture with intra-articular exte nsion and volar displacement of the distal component. 2. Displaced fracture of the ulnar styloid. 3. Left wrist and hand soft tissue swelling. ACT 112: Negative or not required by law. Electronically signed by: Edmond Shi M.D. 07/16/2020 8:53 AM
--- NOTE | 2020-07-16 08:55 | XRay Report ---
XR forearm LT 2V CLINICAL HISTORY: fall, pain COMPARISON: None FINDINGS: No proximal left radial or ulnar fracture is noted. There is no left elbow joint the effus ion. Note is made of displaced distal left radial fracture which is comminuted. There is intra-articu lar extension. A fracture of the ulnar styloid is noted. These fractures are better depicted on the l eft wrist radiographs which will be reported separately. IMPRESSION: 1. Comminuted, displaced distal left radial fracture with intra-articular extension and extension. Fr acture of the ulnar styloid. These fractures are better depicted on the left wrist radiographs which will be reported separately. 2. No proximal left radial or ulnar fracture. ACT 112: Negative or not required by law. Electronically signed by: Edmond Shi M.D. 07/16/2020 8:54 AM
[2020-07-16] MEDS ORDERED: KETOROLAC 30 MG/ML VIAL ONE (08:59)
[2020-07-16] MEDS ORDERED: ATORVASTATIN 40 MG TAB PO SCH (09:00)
[2020-07-16] MEDS ORDERED: GLIMEPIRIDE 2 MG TAB PO SCH (09:00)
[2020-07-16] MEDS ORDERED: lisinopril 20 MG TAB PO SCH (09:00)
--- NOTE | 2020-07-16 09:36 | Operative Report ---
PG Post Operative Report Pre & Post Diagnosis Operation Date: 07/16/20 07:00 Pre-Op Diagnosis: 3 part intra-articular left distal radius fracture Post-Op Diagnosis: 3 part intra-articular left distal radius fracture Operation Date: 07/16/20 08:00 <No data on this case meets the specified criteria> I identified the patient and participated in the time-out.: Yes Procedure Operation Date: 07/16/20 07:00 Actual Procedures p Open Reduction Internal Fixation Left Distal Radius(Left) - Rah Soria DO Operation Date: 07/16/20 08:00 <No data on this case meets the specified criteria> Surgeon Rah Soria DO [employer] Worker None Estimated Blood Loss 10 Findings Consistent with Post-Op Diagnosis Specimens None Complications none Disposition Disposition: Recovery Room Indications Serge is a pleasant 49-year-old male who fell last night while fishing. He sustained a left distal radius fracture. He came to the emergency room and was admitted to the orthopedic service. After discussions at bedside, he elected proceed with an open reduction internal fixation of the left distal radius. Description of Procedure On July 16, 2020 Serge was brought down from the hospital room to the preoperative holding area. The operative extremity was identified and signed. He was given a preoperative antibiotic. He was taken back to the operating room and laid on the table in supine position. He was put under general anesthesia. The left wrist was prepped and draped in sterile fashion. A timeout was done. The patient and the operative extremity was properly identified. A volar approach was used. Dissection was taken down directly to the flexor carpi radialis longus. The tendon was retracted ulnarly. Dissection was taken down through the fascia to the supinator. The supinator was elevated off the distal radius. Care was taken not to disrupt the median nerve on the ulnar side or the radial artery on the radial side. The fracture was exposed. The fracture was then reduced under fluoroscopy. It was a difficult intra-articular volar fracture. Once I was happy with the alignment a Synthes 3-hole variable angle distal radial locking plate was then placed. A single compression screw was placed in the combination hole. The plate was slid a little more distally. Fluoroscopy was used to ensure anatomic alignment of the fracture and appropriate placement of the plate. A single locking screw was then placed distally. All guidepins were then removed. I was happy with the overall alignment and reduction of the fracture. The remainder of the distal locking screws were then placed. 2 proximal locking screws were then placed. The length of the screws were checked under fluoroscopy. Final fluoroscopic images showed near anatomic alignment of the fracture. The wound was then irrigated. The tourniquet was deflated and hemostasis was obtained. The surrounding soft tissues were injected with 20 cc of Marcaine with epinephrine. The wound was then irrigated again. The skin was closed with 2-0 Vicryl and 3-0 nylon suture in a mattress fashion. He was then placed in a coaptation splint and a regular arm sling. He was then extubated and transferred to hospital bed. He was taken to the post anesthesia care unit in stable condition. He tolerated the procedure well. I attest to the content of the Intraoperative Record and any orders documented therein. Any exceptions are noted below.
--- NOTE | 2020-07-16 10:11 | Anesthesiology Progress Note ---
Date of Service July 16, 2020 Anesthesia Post Procedure Vital Signs Vital Signs: Temp Pulse Pulse Resp BP BP Pulse Ox 07/16/20 10:05 99.0 F 94 H 14 138/84 95 07/16/20 09:55 92 H 15 145/86 H 96 07/16/20 09:45 91 H 15 133/92 95 07/16/20 09:35 98.8 F 102 H 16 118/71 99 07/16/20 07:51 98.6 F 84 18 144/87 H 96 07/16/20 06:12 99.3 F 93 H 16 162/87 H 96 07/16/20 03:56 83 20 146/93 H 94 07/16/20 03:26 76 20 150/90 H 96 07/16/20 02:41 97 H 18 159/92 H 96 07/16/20 01:33 97.9 F 92 H 193/111 H 98 Pain Intensity Left Wrist: Pain Intensity: 2 Transfer of Care Handoff Completed per policy Notes Mental Status: alert / awake / arousable and participated in evaluation Patient Amnestic to Procedure: Yes Nausea / Vomiting: adequately controlled Pain: adequately controlled Airway Patency, RR, SpO2: stable & adequate BP & HR: stable & adequate Hydration State: stable & adequate Anesthetic Complications: no major complications apparent and Pt Satisfied with anesthetic care
--- NOTE | 2020-07-16 10:25 | Discharge Summary ---
Date of Service July 16, 2020 Admission HPI (Per Admitting) Serge is a 49-year-old male who was out fishing last night when he slipped and fell on the rocks. He fell on his left outstretched hand. He had immediate left wrist pain. He came to [facility] in the emergency room and radiographs demonstrated a volar displaced left distal radius fracture. He was placed in a splint and admitted to orthopedic service for operative fixation the following day.. Admission Exam (Per Admitting) On physical examination of the left wrist, he has a volar splint in place. He has motion of his fingers. There is minimal swelling at this time.. Principal Diagnosis Same as "Discharge Diagnosis" noted below under Discharge Instructions. Discharge Data Consultations 07/16/20 02:56 ED Decision to Admit Stat Procedures Performed Operation Date: 07/16/20 07:00 Actual Procedures p Open Reduction Internal Fixation Left Distal Radius(Left) - Rah Soria DO Operation Date: 07/16/20 08:00 <No data on this case meets the specified criteria> Ordered Studies 07/16/20 01:42 CT head/brain wo con Urgent 07/16/20 07:00 FL wrist LT 3V RTN Routine Hospital Course (1) Fracture of wrist: On July 15, 2020 Serge fell while fishing and sustained a left distal radius fracture. He came to the emergency room early in the morning and radiographs demonstrated a volarly displaced distal radius fracture. He was admitted to the orthopedic service and the decision was made for open reduction internal fixation. On July 16, 2020 he went to the operating room and underwent an open reduction internal fixation of the left wrist without complication. Postoperatively he was placed in a coaptation splint and a regular arm sling. He was then sent back to the general orthopedic floors. Once he was fully recovered from the anesthesia, and able to tolerate fluids. He was then discha rged to home on oral pain medications. He will follow-up with orthopedics in 2 weeks. Encounter type: initial encounter Fracture type: closed Laterality: left Qualified Code(s): S62.102A - Fracture of unspecified carpal bone, left wrist, initial encounter for closed fracture PG Care Time/CCT Total # of Minutes Spent Total Time Spent with Patient: Total time spent is greater than 50% in coordination of care (as documented) at patient's floor/unit and/or counseling patient: Discharge Plan Discharge Items Patient Disposition: Home - Self-Care Reason For Visit: WRIST FRACTURE Discharge Diagnosis: Fixation of left wrist Condition on Discharge: Good Activity: As commented below Non-emergency contact: Surgeon Call non-emergency contact if: your wound has increased redness and your wound has increased drainage Follow-up/Referrals: Brock Nicolas III, MD [Primary Care Provider] - Diet: Regular Addtl Attending Provider Instructions: ORTHOPEDIC INSTRUCTIONS Activity Recommendations: Stay in the splint at all times. You may use your fingers to hold simple things but no gripping or lifting with the left hand. Your wrist is going to swell and it is going to be sore. Be sure to keep it elevated as much as possible. This is very, very important. Elevation is anything above your heart. Keep ice on it as much as possible. The more you ice it the less the swelling will be. The ice will cool through the splint. Icing is most important over the first 72 hours. Medications: Take Percocet as needed for the pain. You can take half a pill if you want or a full pill. Take the Toradol for 5 days until it is finished. After the Toradol, you can start taking ibuprofen 800 mg every 8 hours and Tylenol 1000 mg every 8 hours. You can alternate these medications. Just take these medications as needed for pain. Dressing Care: Leave the splint intact at all times. Showering: Do not shower or get the splint wet. Things To Watch For: 1. Fever above 102 degrees Fahrenheit. 2. Unusual chest pain or shortness of breath. 3. Call [facility] at with any of the above problems Follow-Up Visit: Follow-up with Dr. Soria's PA (Rah Jane) 2 and a half weeks after your day of surgery. He will remove your zoe and answer any questions. We will get x-rays and placed you in a cast at that time. If you have any additional questions or concerns, Dr Soria is usually in the office at the same time and will be available Please call to make that appointment. [phone] Pending Studies at Discharge: No Stand-Alone Forms: My [facility], Smoking Cessation Medications and DC Order Prescriptions: New oxycodone-acetaminophen [Percocet] 5-325 mg tablet 1 tab PO Q4H PRN (Reason: pain) Qty: 60 RF: 0 ketorolac 10 mg tablet 10 mg PO Q8H 5 Days Qty: 15 RF: 0 Continued atorvastatin 40 mg tablet 40 mg PO QAM Qty: 90 RF: 3 clopidogrel 75 mg tablet 75 mg PO QAM Qty: 90 RF: 3 lisinopril 20 mg tablet 20 mg PO QAM Qty: 90 RF: 3 glimepiride 2 mg tablet 2 mg PO DAILY Qty: 90 RF: 3 sildenafil (pulm.hypertension) 20 mg tablet See Rx Instructions PO ONCE Qty: 30 RF: 5 Discharge Orders: Discharge Order (Routine); Ordered 07/16/20 Ordered By: Rah Soria Admission Data Admit Date/Time: 07/16/20 03:47 Attending Provider: Rah Soria Admit Provider: Rah Soria Primary Care Provider: Brock Nicolas III Other Providers: Rah Soria
--- NOTE | 2020-07-16 10:27 | Fluoroscopy Report ---
INTRAOPERATIVE RADIOGRAPHS CLINICAL HISTORY: Open reduction and internal fixation of left wrist. Fluoroscopy time: 83 seconds. FINDINGS: 2 spot fluoroscopic views of the left wrist are correlated with radiographs performed the 07/16/2020. There is a mildly displaced avulsion fracture the ulnar styloid. There has been but tress plate fixation along the volar surface of the distal radius fixating a comminuted distal radial fracture. Alignment is significantly improved. There is minimal persistent apex dorsal angulation. O verlying soft tissue edema is noted. The orthopedic hardware appears intact. IMPRESSION: Intraoperative images from open reduction and internal fixation of the left radius as abo ve. Electronically signed by: Nehemias Alegre M.D. 07/16/2020 10:26 AM
[2020-07-16] MEDS ORDERED: oxyCODONE HCL IR 5 MG TAB (IMMEDIATE RELEASE) PO PRN (10:28)
--- NOTE | 2020-07-16 11:54 | Electrocardiogram Report ---
Test Reason : Blood Pressure : / mmHG Vent. Rate : 082 BPM Atrial Rate : 082 BPM P-R Int : 148 ms QRS Dur : 096 ms QT Int : 392 ms P-R-T Axes : 047 033 039 degrees QTc Int : 457 ms Normal sinus rhythm Normal ECG When compared with ECG of 30-JUN-2017 09:00, No significant change was found Confirmed by Davion Call ([id number]) on 07/16/2020 11:53:47 AM Referred By: REFERRED SELF Confirmed By:Davion Call
[2020-07-16] MEDS ORDERED: KETOROLAC TROMETHAMINE 15 MG/ML VIAL IV SCH (14:00)
[2020-07-17] MEDS ORDERED: MULTIVITAMIN TAB PO SCH (09:00)
== END 2020-07-16 16:04 | disposition home or self-care (01) ==
LOC: 3W 01:29 → ED 01:29 → 3W 04:11